=== PATIENT | male | born 1950 | race Caucasian/White ===

== ENCOUNTER 2023-09-12 18:55 | Emergency (ER) | payer MEDICARE, OTHER, SELFPAY ==
[2023-09-12 18:58] VITALS: BP 99/66
[2023-09-12 19:00] VITALS: BP 103/59
[2023-09-12 19:12] VITALS: BMI 24.7
[2023-09-12 19:20] LABS: % Basophils 0.9 % (0-2); % Eosinophils 4.4 % (0-6); % Immature Granulocytes 0.6 % (0-0.5); % Monocytes 11.6 % (1.7-9.3); % Neutrophils 56.5 % (42.2-75.2); Absolute Basophils 0.1 10^3/uL (0-0.2); Absolute Eosinophils 0.3 10^3/uL (0-0.7); Absolute Lymphocytes 1.8 10^3/uL (1.2-3.4); Absolute Monocytes 0.8 10^3/uL (0.1-0.6); Absolute Neutrophils 3.9 10^3/uL (1.4-6.5); Hematocrit 35.5 % (39.0-52.0); Hemoglobin 12.3 g/dL (13.0-18.0); Mean Corp Hgb Conc. 34.6 g/dL (33.0-37.0); Mean Corpuscular Hgb 29.5 pg (27.0-31.0); Mean Corpuscular Volume 85.1 fL (80.0-94.0); Mean Platelet Volume 9.6 fL (7.4-10.4); Nucleated Red Blood Cells % 0 % (-); Platelet Count 221 10^3/uL (130-400); Red Blood Cell Count 4.17 10^6/uL (4.70-6.10); Red Cell Dist. Width 13.7 % (11.5-14.5); White Blood Cell Count 6.8 10^3/uL (4.8-10.8)
[2023-09-12 19:30] LABS: APTT 28.5 Sec (23.4-35.0)
[2023-09-12 19:32] LABS: ALT (SGPT) 18 U/L (0-50); AST (SGOT) 20 U/L (17-59); Albumin 3.4 g/dl (3.5-5.0); Alkaline Phosphatase 82 U/L (38-126); Blood Urea Nitrogen 28 mg/dl (9-20); Calcium 9.5 mg/dl (8.4-10.2); Carbon Dioxide 26 mmol/L (22-30); Chloride 104 mmol/L (98-107); Estimated Creatinine Clearance 62 ml/min; Glucose 219 mg/dl (70-99); Potassium 4.3 mmol/L (3.5-5.1); Sodium 138 mmol/L (135-145); Total Bilirubin 0.6 mg/dl (0.2-1.3); Total Protein 6.1 g/dl (6.3-8.2); eGFR > 60.00
[2023-09-12 19:55] LABS: Troponin I < 0.012 ng/ml
[2023-09-12 20:00] VITALS: BP 101/64
[2023-09-12 21:02] VITALS: BP 119/60
--- NOTE | 2023-09-12 21:19 | ED.GENMED ---
History of Present Illness
<Ramon Hoffmann Jr., PA-C - Last Filed: 09/13/23 21:09>
General
Chief Complaint: Chest Pain
Source: patient
Exam Limitations: none
Time Seen by Provider: 09/12/23 19:01
Nursing documentation reviewed up to this point in time: agreed with
Travel History
Have you had any contact with someone who has COVID-19?: No
Do you have any symptoms of coronavirus? Fever > 100 degrees, chills, cough, shortness of breath, sore throat, loss of taste or smell, muscle aches, or headache?: No
History of Present Illness
History of Present Illness:
73-year-old male with past medical history of CAD hypertension and diabetes presenting to the emergency department today with concerns of chest discomfort from his nursing facility to the left chest described as intermittently sharp initially 9-10
was received aspirin and nitro prior to arrival with full resolution of symptoms. Denies any shortness of breath nausea vomiting diaphoresis.
Review of Systems
<Ramon Hoffmann Jr., PA-C - Last Filed: 09/13/23 21:09>
Review of Systems
Allergies reviewed?: Yes
All Other Systems: ROS reviewed and negative except as documented in HPI and ROS
Phy Exam
<Ramon Hoffmann Jr., PA-C - Last Filed: 09/13/23 21:09>
Physical Exam
Physical Exam:
GENERAL: Alert , in no apparent distress
EYE: pupils equal and reactive
NECK: Supple, no significant adenopathy.
ENT: o/p clr, mmm.
CARDIAC: Regular rate and rhythm .
LUNGS: Clear breath sounds bilaterally, no acute respiratory distress, no wheezes/rales/rhonchi
ABDOMEN: Soft, without focal tenderness, no r/g, no cvat
NEUROLOGICAL: Alert and oriented, no focal neuro deficits
SKIN: Warm and dry, skin intact.
MUSCULOSKELETAL: No edema, well perfused.
PSYCH: Normal and appropriate interaction.
Scores
<Ramon Hoffmann Jr., PA-C - Last Filed: 09/13/23 21:09>
Heart Score for Chest Pain Patients
Heart Score for Chest Pain Patients: 3
Heart Score Risk: 2.5% MACE over next 6 weeks
<Nikolay Stone DO - Last Filed: 09/12/23 22:52>
Heart Score for Chest Pain Patients
Heart Score for Chest Pain Patients: 3
Heart Score Risk: 2.5% MACE over next 6 weeks
<Juan Frausto PA-C - Last Filed: 09/12/23 22:46>
Heart Score for Chest Pain Patients
STEMI patient?: No
History: Slightly or Non-Suspicious
ECG: Normal
Age: >/= 65 years
Risk Factors: 1 or 2 Risk Factors
Troponin: </= Normal Limit
Heart Score for Chest Pain Patients: 3
Heart Score Risk: 2.5% MACE over next 6 weeks
Course
<Ramon Hoffmann Jr., PA-C - Last Filed: 09/13/23 21:09>
Orders/Labs/Results
Orders:
Orders
09/12/23 18:57
Electrocardiogram (*1) Urgent
Reason for Study: QTc Monitoring
09/12/23 18:58
EKG- Treatment ONCE
09/12/23 18:59
Complete Blood Count/With Diff Urgent
Comprehensive Metabolic Panel Urgent
PTT Urgent
Troponin I Urgent
09/12/23 19:26
Chest [CR Chest - 2 Views ] Urgent
Comment:
Reason For Exam: cp
09/12/23 21:18
EKG- Treatment ONCE
09/12/23 21:59
Troponin I Routine
09/12/23 22:00
EKG [Electrocardiogram (*1)] Routine
Reason for Study: Chest Pain
Abnormal Lab Results
09/12/23
18:59
RBC 4.17 L 10^6/uL
(4.70-6.10)
Hgb 12.3 L g/dL
(13.0-18.0)
Hct 35.5 L %
(39.0-52.0)
Absolute Monos (auto) 0.8 H 10^3/uL
(0.1-0.6)
Immature Gran % 0.6 H %
(0-0.5)
Monocytes % 11.6 H %
(1.7-9.3)
BUN 28 H mg/dl
(9-20)
Glucose 219 H mg/dl
(70-99)
Total Protein 6.1 L g/dl
(6.3-8.2)
Albumin 3.4 L g/dl
(3.5-5.0)
09/12/23 18:59
09/12/23 18:59
Vital Signs
Initial and Last Documented VS:
Initial Vital Signs
BP
99/66
09/12/23 18:58
Last Documented Vital Signs
Temp Pulse Resp BP Pulse Ox
98.6 F 84 21 113/71 97
09/12/23 19:00 09/12/23 23:15 09/12/23 23:15 09/12/23 22:00 09/12/23 23:15
Ilanalt;Nikolay Stone, - Last Filed: 09/12/23 22:52>
Orders/Labs/Results
Orders:
Orders
09/12/23 18:57
Electrocardiogram (*1) Urgent
Reason for Study: QTc Monitoring
09/12/23 18:58
EKG- Treatment ONCE
09/12/23 18:59
Complete Blood Count/With Diff Urgent
Comprehensive Metabolic Panel Urgent
PTT Urgent
Troponin I Urgent
09/12/23 19:26
Chest [CR Chest - 2 Views ] Urgent
Comment:
Reason For Exam: cp
09/12/23 21:18
EKG- Treatment ONCE
09/12/23 21:59
Troponin I Routine
09/12/23 22:00
EKG [Electrocardiogram (*1)] Routine
Reason for Study: Chest Pain
Abnormal Lab Results
09/12/23
18:59
RBC 4.17 L 10^6/uL
(4.70-6.10)
Hgb 12.3 L g/dL
(13.0-18.0)
Hct 35.5 L %
(39.0-52.0)
Absolute Monos (auto) 0.8 H 10^3/uL
(0.1-0.6)
Immature Gran % 0.6 H %
(0-0.5)
Monocytes % 11.6 H %
(1.7-9.3)
BUN 28 H mg/dl
(9-20)
Glucose 219 H mg/dl
(70-99)
Total Protein 6.1 L g/dl
(6.3-8.2)
Albumin 3.4 L g/dl
(3.5-5.0)
09/12/23 18:59
09/12/23 18:59
Vital Signs
Initial and Last Documented VS:
Initial Vital Signs
BP
99/66
09/12/23 18:58
Last Documented Vital Signs
Temp Pulse Resp BP Pulse Ox
98.6 F 84 21 113/71 97
09/12/23 19:00 09/12/23 23:15 09/12/23 23:15 09/12/23 22:00 09/12/23 23:15
<Juan Frausto PA-C - Last Filed: 09/12/23 22:46>
Orders/Labs/Results
Orders:
Orders
09/12/23 18:57
Electrocardiogram (*1) Urgent
Reason for Study: QTc Monitoring
09/12/23 18:58
EKG- Treatment ONCE
09/12/23 18:59
Complete Blood Count/With Diff Urgent
Comprehensive Metabolic Panel Urgent
PTT Urgent
Troponin I Urgent
09/12/23 19:26
Chest [CR Chest - 2 Views ] Urgent
Comment:
Reason For Exam: cp
09/12/23 21:18
EKG- Treatment ONCE
09/12/23 21:59
Troponin I Routine
09/12/23 22:00
EKG [Electrocardiogram (*1)] Routine
Reason for Study: Chest Pain
Abnormal Lab Results
09/12/23
18:59
RBC 4.17 L 10^6/uL
(4.70-6.10)
Hgb 12.3 L g/dL
(13.0-18.0)
Hct 35.5 L %
(39.0-52.0)
Absolute Monos (auto) 0.8 H 10^3/uL
(0.1-0.6)
Immature Gran % 0.6 H %
(0-0.5)
Monocytes % 11.6 H %
(1.7-9.3)
BUN 28 H mg/dl
(9-20)
Glucose 219 H mg/dl
(70-99)
Total Protein 6.1 L g/dl
(6.3-8.2)
Albumin 3.4 L g/dl
(3.5-5.0)
09/12/23 18:59
09/12/23 18:59
Vital Signs
Initial and Last Documented VS:
Initial Vital Signs
BP
99/66
09/12/23 18:58
Last Documented Vital Signs
Temp Pulse Resp BP Pulse Ox
98.6 F 84 21 113/71 97
09/12/23 19:00 09/12/23 23:15 09/12/23 23:15 09/12/23 22:00 09/12/23 23:15
<Ramon Hoffmann Jr., PA-C - Last Filed: 09/13/23 21:09>
MDM/Problems Addressed
MDM/Problems Addressed:
73-year-old male presenting to the emergency department today with concerns of chest discomfort prior to arrival. He received aspirin and nitro with full resolution of prior to arrival. No ongoing symptoms here. EKG showed sinus arrhythmia but no
evidence of A-fib as noted with the initial triage note. No obvious signs of ischemia but no old EKGs for comparison. No leg swelling no recent trauma surgery immobilization normal heart rate normal pulse ox. Initial troponin negative chest x-ray
normal. Plan for second troponin and EKG if no changes and negative troponin feel the patient is stable for outpatient follow-up with cardiology in a timely fashion. Second troponin negative making ACS very unlikely patient will follow-up closely
with cardiology.
<Juan Frausto PA-C - Last Filed: 09/12/23 22:46>
*Critical Care Note
Total Time (30-74mins, 75-104mins- exclusive of procedures): Not Applicable
<Juan Frausto PA-C - Last Filed: 09/12/23 22:46>
Patient Management
Escalation/DeEscalation of care consider admission/obs:
Patient received in signout pending repeat troponin. Second troponin remains negative and patient is chest pain-free. Information for outpatient cardiology was provided. Patient aware of return precautions but otherwise stable for discharge home.
ED Attending Note
<Ramon Hoffmann Jr., PA-C - Last Filed: 09/13/23 21:09>
-
Portions of this chart may have been created with voice recognition software.� Occasional wrong word or��sound alike� substitutions may have occurred due to the inherent limitations of voice recognition software.
<Nikolay Stone, - Last Filed: 09/12/23 22:52>
ED Attending Note
Patient seen and examined by attending physician: Yes
I performed the substantive portion of visit, reviewed & personally made and approve the management plan that is documented in note by myself or LAURIE.: Yes
ED Attending Note:
I have reviewed and agree with history and treatment plan by Luis Hoffmann. My exam reveals 73-year-old male with no acute distress, appears comfortable. Patient denies chest pain at this time. Serial troponins negative. Stable for discharge and
follow-up with cardiology
Discharge Plan
Departure
Patient Disposition: Home (Routine Discharge)
Date of Disposition: 09/12/23
Time of Disposition: 22:44
Patient with high blood pressure during this ER visit?: No
Condition: Good
Covid-19: Not Applicable
Discharge Problem:
Chest pain
Instructions: Chest Pain DCA Follow Up
Prescriptions:
No Action
atorvastatin 40 mg Tablet
40 mg PO QPM
acetaminophen 325 mg Tablet
650 mg PO Q6H PRN (Reason: mild pain/temp>100.4)
polyethylene glycol 3350 [Miralax] 17 gram Powder In Packet
17 g PO DAILY PRN (Reason: constipation)
isosorbide mononitrate 30 mg Tablet Extended Release 24 Hr
30 mg PO DAILY
glipizide 5 mg Tablet Extended Release 24hr
10 mg PO DAILY
clopidogrel 75 mg Tablet
75 mg PO DAILY
aspirin 81 mg Tablet,Delayed Release (Dr/Ec)
81 mg PO DAILY
magnesium hydroxide [Milk of Magnesia] 400 mg/5 mL Suspension
30 ml PO DAILY PRN (Reason: if no bm x 3 days)
bisacodyl [Dulcolax (bisacodyl)] 10 mg Suppository
10 mg WV DAILY PRN (Reason: if MOM is ineffective)
Fleet Enema 19-7 gram/118 mL Enema
118 ml WV DAILY PRN (Reason: if suppository is ineffective)
nitroglycerin [Nitrostat] 0.4 mg Tablet, Sublingual
0.4 mg SUBLINGUAL [id number] PRN (Reason: chest pain)
metoprolol succinate 25 mg Tablet Extended Release 24 Hr
12.5 mg PO DAILY
ergocalciferol (vitamin D2) 1,250 mcg (50,000 unit) Capsule
1,250 mcg PO FR
metformin 500 mg Tablet Extended Release 24 Hr
1,000 mg PO DAILY
aripiprazole [Abilify] 20 mg Tablet
20 mg PO DAILY
Levemir FlexPen 100 unit/mL (3 mL) Insulin Pen
5 unit SC HS
Januvia 100 mg Tablet
100 mg PO DAILY
aripiprazole lauroxil 441 mg/1.6 mL Suspension,Extended Rel Syring
441 mg IM QMONTH
Activity Restrictions/Additional Instructions:
You came to the emergency department today with concerns of chest discomfort. Here you had a reassuring evaluation. Please follow closely with cardiology in the next few days. Return to the emergency department for any worsening, new or
concerning symptoms.
Interventions
Interventions:
*Risk Screen - Suicide Last Done: 09/12/23 19:21
*General Assessment Last Done: 09/12/23 19:13
*Neglect/Abuse Screening Last Done: 09/12/23 19:21
ED- Fall Risk Assessment Last Done: 09/12/23 19:21
*ED COVID-19 Vaccine History Last Done: 02/06/24 23:33
*Nursing Disposition Last Done: 09/12/23 23:33
ED- Cardiac Assessment Last Done: 09/12/23 19:21
Discharge Date and Time
Discharge Date/Time: 09/12/23 23:34
[2023-09-12 22:00] VITALS: BP 113/71
[2023-09-12 22:28] LABS: Troponin I < 0.012 ng/ml
== END 2023-09-12 23:34 | disposition home or self-care (01) ==
LOC: EMR 18:55
PROVIDERS: Clinical Nurse Specialist Family Health; Physician Assistant; EMERGENCY PHYSICIAN Emergency Medicine; FAMILY PHYSICIAN Internal Medicine
DX: R07.89 Other chest pain (principal); I25.10 Atherosclerotic heart disease of native coronary artery without angina pectoris; I10 Essential (primary) hypertension; E11.9 Type 2 diabetes mellitus without complications; Z88.0 Allergy status to penicillin
CPT/HCPCS: 99284; 71046; 80053; 84484; 85025; 85730; 93005

== ENCOUNTER 2023-09-19 23:19 | Emergency (ER) | payer MEDICARE, SELFPAY ==
[2023-09-19 23:20] VITALS: BMI 24.0
[2023-09-19 23:23] VITALS: BP 107/61
--- NOTE | 2023-09-19 23:55 | ED.GENMED ---
History of Present Illness
General
Chief Complaint: Chest Pain
Time Seen by Provider: 09/19/23 23:25
Travel History
Have you had any contact with someone who has COVID-19?: No
Do you have any symptoms of coronavirus? Fever > 100 degrees, chills, cough, shortness of breath, sore throat, loss of taste or smell, muscle aches, or headache?: No
History of Present Illness
History of Present Illness:
HPI: The patient presents with chest pain. He tells me it started about half hour ago but he also tells me has been having chest pain intermittently for about 11 months. He says that while he was living in [place], approximately 6 weeks ago, he
had a heart attack and had a stent placed 'on the right side of my heart'. [facility] ended up placing him at [facility] here in [place]. He was also here 1 week ago for evaluation of chest pain. At that time he was discharged.
He also did screen positive for suicidal thoughts however in further evaluation, the patient states this has been going on for many years. He does request to talk to somebody.
EXAM:
GENERAL: Well appearing in no distress
HEENT: Moist oral mucosa
CARDIOVASCULAR: No murmurs, normal heart rate and rhythm, No chest wall tenderness
PULMONARY: No respiratory distress, breath sounds are clear and equal
ABDOMEN: Soft with no peritoneal signs, no tenderness
NEUROLOGIC: Excellent strength all extremities, no coordination deficits
PSYCHIATRIC: Appropriate mental status, normal insight and judgement
EXTREMITIES: Nontender, no edema, moves all extremities equally
SKIN: No rash, no lesions
ED COURSE:
12 AM: I initially evaluated patient
NUMBER AND COMPLEXITY OF PROBLEMS ADDRESSED AT THE ENCOUNTER
� Chronic conditions affecting care: CAD, GERD, diabetes
� Acute Exacerbation and/or Progression of Chronic Illness: This appears to be an acute on chronic problem
� Differential Diagnosis includes: Musculoskeletal chest pain, ACS less likely, anxiety, psych related
AMOUNT AND/OR COMPLEXITY OF DATA TO BE REVIEWED AND ANALYZED
� I performed an independent evaluation of and my interpretation is:
EKG: Sinus 73, left axis deviation, bifascicular block, no acute ST abnormality, no significant change from 09/12/2023
CT:
X-rays: I personally reviewed chest x-ray and see no acute abnormality
Laboratory Studies: CBC, chemistries unremarkable with exception of glucose of 206, initial troponin unremarkable, BNP also unremarkable
Other:
� Review of other/old records: I reviewed the notes from 1 week ago. We also attempted to get records from [facility]. The past medical history also includes suicidal ideation, prostate cancer, and 'major depressive
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 He was documented to be homeless at that time. The records indicate the patient had PCI November 2022. He was documented to lack capacity and has cognitive impairment.
� Clinical information was obtained by an independent historian: EMS note, notes from [facility]
� Prescriptions/Medications Considered but not given: Consider nitroglycerin however the patient did receive nitroglycerin prior to arrival and this has been a chronic problem and appears comfortable
� Further testing considered but not performed:
RISK OF COMPLICATIONS AND/OR MORBIDITY OR MORTALITY OF PATIENT MANAGEMENT
� Social determinants of health affecting care: Currently staying at [facility], but apparently was homeless while living in [facility]
� Discussion with other providers: Did discuss with crisis and crisis talk to the patient. The patient's depression/suicidal thoughts have been ongoing for many decades. No clear indication for admission to a psych hospital at
this time. He also had a negative troponin last week.
� Escalation of care including admission/observation vs risk of discharge considered: The patient was seen by crisis. The suicidal thoughts have been an ongoing issue for many many years. The chest pain is also not necessarily
a new thing. He did have more recent pain however therefore 2 troponins will be obtained. The first troponin was negative. I reassessed the patient at 1:40 AM. There has been no significant change in the patient's clinical condition. He is
well-appearing. He appears comfortable. Second troponin unchanged/normal. It appears that the most recent PCI was performed in November 2022.
Phy Exam
Physical Exam
Physical Exam:
See HPI
Scores
Heart Score for Chest Pain Patients
STEMI patient?: Not applicable
Course
Orders/Labs/Results
Orders:
Orders
09/19/23 23:21
Electrocardiogram (*1) Urgent
Reason for Study: Other
Other Reason for Exam: Respiratory Distress
Cardiac Monitoring- Treatment ONCE
EKG- Treatment ONCE
IV Insert/Care/Rem.- Treatment PRN
O2 Therapy [RESP] Urgent
Titrate/Wean O2 to maintain O2 sat greater than (%): 93
Special Instructions: TO MAINTAIN CONTINUOUS O2 SATS >/= 93%
Pulse Ox/cont/shift [RESP] Urgent
Quantity: 1
Special Instructions: continuous pulse ox
09/19/23 23:40
Complete Blood Count/With Diff Urgent
Comprehensive Metabolic Panel Urgent
NT-proBNP Urgent
Troponin I Urgent
09/19/23 23:55
Crisis Consult Urgent
Reason for Consult: depression
09/20/23 00:01
CR Chest - 2 Views Urgent
Reason For Exam: respiratory distress
09/20/23 01:37
Troponin I Urgent
Abnormal Lab Results
09/19/23
23:40
Abs Immat Gran (auto) 0.1 H 10^3/uL
(0-0.05)
Absolute Monos (auto) 0.7 H 10^3/uL
(0.1-0.6)
Immature Gran % 0.9 H %
(0-0.5)
Eosinophils % 6.6 H %
(0-6)
Glucose 206 H mg/dl
(70-99)
09/19/23 23:40
09/19/23 23:40
Vital Signs
Initial and Last Documented VS:
Initial Vital Signs
Temp Pulse Resp BP Pulse Ox
98.5 F 73 16 107/61 94
09/19/23 23:23 09/19/23 23:23 09/19/23 23:23 09/19/23 23:23 09/19/23 23:23
Last Documented Vital Signs
Temp Pulse Resp BP Pulse Ox
98.5 F 73 16 107/61 94
09/19/23 23:23 09/19/23 23:23 09/19/23 23:23 09/19/23 23:23 09/19/23 23:40
*Critical Care Note
Total Time (30-74mins, 75-104mins- exclusive of procedures): Not Applicable
ED Attending Note
-
Portions of this chart may have been created with voice recognition software.� Occasional wrong word or��sound alike� substitutions may have occurred due to the inherent limitations of voice recognition software.
Discharge Plan
Departure
Patient Disposition: Home (Routine Discharge)
Date of Disposition: 09/20/23
Time of Disposition: 02:14
Patient with high blood pressure during this ER visit?: Yes
Discharge Problem:
Chest pain
Instructions: Chest Pain DCA Follow Up
Prescriptions:
No Action
atorvastatin 40 mg Tablet
40 mg PO QPM
acetaminophen 325 mg Tablet
650 mg PO Q6H PRN (Reason: mild pain/temp>100.4)
polyethylene glycol 3350 [Miralax] 17 gram Powder In Packet
17 g PO DAILY PRN (Reason: constipation)
isosorbide mononitrate 30 mg Tablet Extended Release 24 Hr
30 mg PO DAILY
glipizide 5 mg Tablet Extended Release 24hr
10 mg PO DAILY
clopidogrel 75 mg Tablet
75 mg PO DAILY
aspirin 81 mg Tablet,Delayed Release (Dr/Ec)
81 mg PO DAILY
magnesium hydroxide [Milk of Magnesia] 400 mg/5 mL Suspension
30 ml PO DAILY PRN (Reason: if no bm x 3 days)
bisacodyl [Dulcolax (bisacodyl)] 10 mg Suppository
10 mg [place] DAILY PRN (Reason: if MOM is ineffective)
Fleet Enema 19-7 gram/118 mL Enema
118 ml [place] DAILY PRN (Reason: if suppository is ineffective)
nitroglycerin [Nitrostat] 0.4 mg Tablet, Sublingual
0.4 mg SUBLINGUAL [id number] PRN (Reason: chest pain)
metoprolol succinate 25 mg Tablet Extended Release 24 Hr
12.5 mg PO DAILY
ergocalciferol (vitamin D2) 1,250 mcg (50,000 unit) Capsule
1,250 mcg PO FR
metformin 500 mg Tablet Extended Release 24 Hr
1,000 mg PO DAILY
aripiprazole [Abilify] 20 mg Tablet
20 mg PO DAILY
Levemir FlexPen 100 unit/mL (3 mL) Insulin Pen
5 unit SC HS
Januvia 100 mg Tablet
100 mg PO DAILY
aripiprazole lauroxil 441 mg/1.6 mL Suspension,Extended Rel Syring
441 mg IM QMONTH
Referrals:
Lucio Daniels DO [Family Provider] -
Reyes Miller MD [Active] - Follow up in 2-3 days
Activity Restrictions/Additional Instructions:
EKG appears unchanged from prior. I see no clear acute abnormality on x-ray. 2 cardiac blood tests were obtained and both were normal. Return here if worse. I have given you the contact information for a local admissions rn.
Interventions
Interventions:
*Risk Screen - Suicide Last Done: 09/19/23 23:23
*General Assessment Last Done: 09/19/23 23:23
*Neglect/Abuse Screening Last Done: 09/19/23 23:23
ED- Fall Risk Assessment Last Done: 09/19/23 23:23
*ED COVID-19 Vaccine History Last Done: 09/19/23 23:23
ED- Cardiac Assessment Last Done: 09/19/23 23:40
[2023-09-20] VITALS: BP 98/64
[2023-09-20 00:07] LABS: % Basophils 0.6 % (0-2); % Eosinophils 6.6 % (0-6); % Immature Granulocytes 0.9 % (0-0.5); % Lymphocytes 24.1 % (20.5-51.1); % Monocytes 7.8 % (1.7-9.3); Absolute Basophils 0.1 10^3/uL (0-0.2); Absolute Eosinophils 0.6 10^3/uL (0-0.7); Absolute Immature Granulocytes 0.1 10^3/uL (0-0.05); Absolute Monocytes 0.7 10^3/uL (0.1-0.6); Absolute Neutrophils 5.1 10^3/uL (1.4-6.5); Hematocrit 40.3 % (39.0-52.0); Hemoglobin 14.3 g/dL (13.0-18.0); Mean Corp Hgb Conc. 35.5 g/dL (33.0-37.0); Mean Corpuscular Hgb 29.4 pg (27.0-31.0); Mean Corpuscular Volume 82.8 fL (80.0-94.0); Mean Platelet Volume 9.7 fL (7.4-10.4); Nucleated Red Blood Cells % 0 % (-); Platelet Count 235 10^3/uL (130-400); Red Blood Cell Count 4.87 10^6/uL (4.70-6.10); Red Cell Dist. Width 13.7 % (11.5-14.5); White Blood Cell Count 8.5 10^3/uL (4.8-10.8)
[2023-09-20 00:31] LABS: NT-proBNP 39.7 pg/ml; Troponin I < 0.012 ng/ml
[2023-09-20 00:32] LABS: ALT (SGPT) 19 U/L (0-50); AST (SGOT) 18 U/L (17-59); Alkaline Phosphatase 86 U/L (38-126); Blood Urea Nitrogen 20 mg/dl (9-20); Calcium 9.9 mg/dl (8.4-10.2); Carbon Dioxide 25 mmol/L (22-30); Chloride 105 mmol/L (98-107); Estimated Creatinine Clearance 63 ml/min; Glucose 206 mg/dl (70-99); Potassium 4.2 mmol/L (3.5-5.1); Sodium 141 mmol/L (135-145); Total Bilirubin 0.7 mg/dl (0.2-1.3); eGFR > 60.00
[2023-09-20 01:13] VITALS: BP 107/67
[2023-09-20 02:00] VITALS: BP 96/59
[2023-09-20 02:13] LABS: Troponin I < 0.012 ng/ml
== END 2023-09-20 03:08 | disposition home or self-care (01) ==
LOC: EMR 23:19
PROVIDERS: Student in an Organized Health Care Education/Training Program; EMERGENCY PHYSICIAN Emergency Medicine; FAMILY PHYSICIAN Internal Medicine
DX: R07.9 Chest pain, unspecified (principal); E11.9 Type 2 diabetes mellitus without complications; I10 Essential (primary) hypertension; K21.9 Gastro-esophageal reflux disease without esophagitis; I25.10 Atherosclerotic heart disease of native coronary artery without angina pectoris; F32.A Depression, unspecified; Z95.5 Presence of coronary angioplasty implant and graft
CPT/HCPCS: 99285; 71046; 80053; 83880; 84484; 85025; 93005

== ENCOUNTER 2023-09-29 00:07 | Emergency (ER) | payer MEDICARE, SELFPAY ==
[2023-09-29] VITALS (8 sets, daily range): BP systolic 101–128; BP diastolic 62–89; BMI 23.1
[2023-09-29 00:38] LABS: % Basophils 0.7 % (0-2); % Immature Granulocytes 0.4 % (0-0.5); % Lymphocytes 26.7 % (20.5-51.1); % Monocytes 8.2 % (1.7-9.3); Absolute Basophils 0.1 10^3/uL (0-0.2); Absolute Eosinophils 0.4 10^3/uL (0-0.7); Absolute Lymphocytes 2.2 10^3/uL (1.2-3.4); Absolute Monocytes 0.7 10^3/uL (0.1-0.6); Absolute Neutrophils 4.8 10^3/uL (1.4-6.5); Hematocrit 43.4 % (39.0-52.0); Hemoglobin 15.8 g/dL (13.0-18.0); Mean Corp Hgb Conc. 36.4 g/dL (33.0-37.0); Mean Corpuscular Hgb 30.3 pg (27.0-31.0); Mean Corpuscular Volume 83.3 fL (80.0-94.0); Mean Platelet Volume 9.6 fL (7.4-10.4); Nucleated Red Blood Cells % 0 % (-); Platelet Count 201 10^3/uL (130-400); Red Blood Cell Count 5.21 10^6/uL (4.70-6.10); Red Cell Dist. Width 13.5 % (11.5-14.5); White Blood Cell Count 8.2 10^3/uL (4.8-10.8)
--- NOTE | 2023-09-29 00:48 | ED.GENMED ---
History of Present Illness
<Nikolay Stone, DO - Last Filed: 09/29/23 02:57>
General
Chief Complaint: Chest Problem
Source: patient and ambulance crew
Exam Limitations: none
Time Seen by Provider: 09/29/23 00:45
Nursing documentation reviewed up to this point in time: agreed with
Travel History
Have you had any contact with someone who has COVID-19?: No
Do you have any symptoms of coronavirus? Fever > 100 degrees, chills, cough, shortness of breath, sore throat, loss of taste or smell, muscle aches, or headache?: No
History of Present Illness
History of Present Illness:
73-year-old male presents emergency department due to chest discomfort. Pain has been ongoing for 3 weeks. He states he gets it every other day. He was watching TV and experienced a sharp chest pain in the left side of his chest. He denies any
pain at this time. He also denies shortness of breath.
Past History
<Nikolay Stone, DO - Last Filed: 09/29/23 02:57>
Past History
ED Past Medical History: HTN, IDDM and Other (Dementia)
ED Past Surgical History: Urological (Prostate)
Social History
Tobacco: Former smoker
Alcohol: None
Drug: None
Living: [facility]
Review of Systems
<Nikolay Stone, DO - Last Filed: 09/29/23 02:57>
Review of Systems
Allergies reviewed?: Yes
All Other Systems: Not applicable
Constitutional: Reports no symptoms
EENT: Reports no symptoms
Respiratory: Reports no symptoms; Denies trouble breathing
Cardiac: Reports chest pain
ABD/GI: Reports no symptoms
: Reports no symptoms
Musculoskeletal: Reports no symptoms
Skin: Reports no symptoms
Neurological: Reports no symptoms
Endocrine: Reports no symptoms
Hematologic/Lymphatic: Reports no symptoms
Psychiatric: Reports no symptoms
Phy Exam
<Nikolay Stone, DO - Last Filed: 09/29/23 02:57>
Physical Exam
Physical Exam:
Physical Exam
General: no apparent distress, not acutely ill
Neck: supple. no meningeal signs. normal posterior pharynx
Heart: s1/s2 regular rate and rhythm, no murmur. equal radial
pulses.
HEENT: Pupils equal round reactive to light, EOMI
Lungs: no acute respiratory distress. clear bilaterally
Abdomen: normal bowel sounds. not tender. no CVAT
Neuro: alert and oriented. no focal neurological deficits cranial nerves II through XII intact
Skin: no rash
Psychiatric: well kept. interactive and cooperative
Extremities: no edema. no calf tenderness. negative homans. good distal pulses
Scores
<Nikolay Stone, DO - Last Filed: 09/29/23 02:57>
Heart Score for Chest Pain Patients
STEMI patient?: No
History: Slightly or Non-Suspicious
ECG: Normal
Age: >/= 65 years
Risk Factors: 1 or 2 Risk Factors
Troponin: </= Normal Limit
Heart Score for Chest Pain Patients: 3
Heart Score Risk: 2.5% MACE over next 6 weeks
<Cruz Randle, DO - Last Filed: 09/29/23 04:36>
Heart Score for Chest Pain Patients
Heart Score for Chest Pain Patients: 3
Heart Score Risk: 2.5% MACE over next 6 weeks
Course
<Nikolay Stone, DO - Last Filed: 09/29/23 02:57>
Orders/Labs/Results
Orders:
Orders
09/29/23 00:09
EKG [Electrocardiogram (*1)] Urgent
Reason for Study: Other
Other Reason for Exam: possible chest pressure
EKG- Treatment ONCE
09/29/23 00:31
Complete Blood Count/With Diff Urgent
Comprehensive Metabolic Panel Urgent
Troponin I Urgent
09/29/23 01:14
0.9% Sodium Chloride 500 ml [Nss] 1,000 ml IV ONCE
09/29/23 03:36
Troponin I Urgent
Abnormal Lab Results
09/29/23
00:31
Absolute Monos (auto) 0.7 H 10^3/uL
(0.1-0.6)
BUN 21 H mg/dl
(9-20)
Glucose 126 H mg/dl
(70-99)
09/29/23 00:31
09/29/23 00:31
Vital Signs
Initial and Last Documented VS:
Initial Vital Signs
Temp Pulse Resp BP Pulse Ox
98.1 F 63 13 105/73 99
09/29/23 00:12 09/29/23 00:12 09/29/23 00:12 09/29/23 00:12 09/29/23 00:12
Last Documented Vital Signs
Temp Pulse Resp BP Pulse Ox
98.1 F 76 17 112/68 97
09/29/23 00:12 09/29/23 04:00 09/29/23 04:00 09/29/23 04:00 09/29/23 04:00
<Cruz Randle, DO - Last Filed: 09/29/23 04:36>
Orders/Labs/Results
Orders:
Orders
09/29/23 00:09
EKG [Electrocardiogram (*1)] Urgent
Reason for Study: Other
Other Reason for Exam: possible chest pressure
EKG- Treatment ONCE
09/29/23 00:31
Complete Blood Count/With Diff Urgent
Comprehensive Metabolic Panel Urgent
Troponin I Urgent
09/29/23 01:14
0.9% Sodium Chloride 500 ml [Nss] 1,000 ml IV ONCE
09/29/23 03:36
Troponin I Urgent
Abnormal Lab Results
09/29/23
00:31
Absolute Monos (auto) 0.7 H 10^3/uL
(0.1-0.6)
BUN 21 H mg/dl
(9-20)
Glucose 126 H mg/dl
(70-99)
09/29/23 00:31
09/29/23 00:31
Vital Signs
Initial and Last Documented VS:
Initial Vital Signs
Temp Pulse Resp BP Pulse Ox
98.1 F 63 13 105/73 99
09/29/23 00:12 09/29/23 00:12 09/29/23 00:12 09/29/23 00:12 09/29/23 00:12
Last Documented Vital Signs
Temp Pulse Resp BP Pulse Ox
98.1 F 76 17 112/68 97
09/29/23 00:12 09/29/23 04:00 09/29/23 04:00 09/29/23 04:00 09/29/23 04:00
<Nikolay Stone, DO - Last Filed: 09/29/23 02:57>
MDM/Problems Addressed
Differential Diagnosis Includes:
ACS, musculoskeletal pain
MDM/Problems Addressed:
73-year-old male with chest pain, chronic, doubt ACS. Will repeat troponin, if negative will discharge.
Chronic conditions affecting care: HTN
Acute Exacerbation and/or Progression of Chronic Illness: HTN
<Nikolay Stone, DO - Last Filed: 09/29/23 02:57>
*Pulse Oximetry
Patient hypoxic: no
*EKG
Interpreted by ED Provider?: Yes
EKG Intrepretation Date: 09/29/23
EKG Intrepretation Time: 00:17
Interpretation: abnormal
Comparison EKG: changes noted
Heart Rate: 62
Rate: normal
Rhythm: sinus and PAC's
[place]: normal axis
Interval: normal interval
QRS Pattern: normal QRS
Ischemia: no ischemia
*Nozzle Worker Interpretation
Rate: normal
Interpretation: normal
Heart Rate: 64
Rhythm: sinus
*Critical Care Note
Total Time (30-74mins, 75-104mins- exclusive of procedures): Not Applicable
Data Reviewed
Review of Other/Old Records Reveals: Testing (Prior lab work, normal serial troponin)
Further Testing Considered But Not Given:
Chest x-ray not indicated
<Nikolay Stone DO - Last Filed: 09/29/23 02:57>
Patient Management
Social determinants of health affecting care: Living situation
Escalation/DeEscalation of care consider admission/obs:
Admit not indicated
ED Attending Note
<Nikolay Stone DO - Last Filed: 09/29/23 02:57>
-
Portions of this chart may have been created with voice recognition software.� Occasional wrong word or��sound alike� substitutions may have occurred due to the inherent limitations of voice recognition software.
Discharge Plan
Departure
Patient Disposition: Home (Routine Discharge)
Date of Disposition: 09/29/23
Time of Disposition: 04:34
Patient with high blood pressure during this ER visit?: No
Condition: Good
Discharge Problem:
Chest pain
Instructions: Chest Pain DCA Follow Up
Prescriptions:
No Action
atorvastatin 40 mg Tablet
40 mg PO QPM
acetaminophen 325 mg Tablet
650 mg PO Q6H PRN (Reason: mild pain/temp>100.4)
polyethylene glycol 3350 [Miralax] 17 gram Powder In Packet
17 g PO DAILY PRN (Reason: constipation)
isosorbide mononitrate 30 mg Tablet Extended Release 24 Hr
30 mg PO DAILY
glipizide 5 mg Tablet Extended Release 24hr
10 mg PO DAILY
clopidogrel 75 mg Tablet
75 mg PO DAILY
aspirin 81 mg Tablet,Delayed Release (Dr/Ec)
81 mg PO DAILY
magnesium hydroxide [Milk of Magnesia] 400 mg/5 mL Suspension
30 ml PO DAILY PRN (Reason: if no bm x 3 days)
bisacodyl [Dulcolax (bisacodyl)] 10 mg Suppository
10 mg IA DAILY PRN (Reason: if MOM is ineffective)
Fleet Enema 19-7 gram/118 mL Enema
118 ml IA DAILY PRN (Reason: if suppository is ineffective)
nitroglycerin [Nitrostat] 0.4 mg Tablet, Sublingual
0.4 mg SUBLINGUAL [id number] PRN (Reason: chest pain)
metoprolol succinate 25 mg Tablet Extended Release 24 Hr
12.5 mg PO DAILY
ergocalciferol (vitamin D2) 1,250 mcg (50,000 unit) Capsule
1,250 mcg PO FR
metformin 500 mg Tablet Extended Release 24 Hr
1,000 mg PO DAILY
aripiprazole [Abilify] 20 mg Tablet
20 mg PO DAILY
Levemir FlexPen 100 unit/mL (3 mL) Insulin Pen
5 unit SC HS
Januvia 100 mg Tablet
100 mg PO DAILY
aripiprazole lauroxil 441 mg/1.6 mL Suspension,Extended Rel Syring
441 mg IM QMONTH
Referrals:
Lucio Daniels DO [Family Provider] -
Interventions
Interventions:
*Risk Screen - Suicide Last Done: 09/29/23 00:12
*General Assessment Last Done: 09/29/23 00:12
*Neglect/Abuse Screening Last Done: 09/29/23 00:12
ED- Fall Risk Assessment Last Done: 09/29/23 00:25
*ED COVID-19 Vaccine History Last Done: 09/29/23 00:25
ED- Cardiac Assessment Last Done: 09/29/23 00:25
ED- Pulmonary Assessment Last Done: 09/29/23 00:25
[2023-09-29 00:58] LABS: ALT (SGPT) 20 U/L (0-50); AST (SGOT) 21 U/L (17-59); Albumin 4.7 g/dl (3.5-5.0); Alkaline Phosphatase 88 U/L (38-126); Blood Urea Nitrogen 21 mg/dl (9-20); Calcium 9.8 mg/dl (8.4-10.2); Carbon Dioxide 27 mmol/L (22-30); Chloride 107 mmol/L (98-107); Estimated Creatinine Clearance 63 ml/min; Glucose 126 mg/dl (70-99); Potassium 4.2 mmol/L (3.5-5.1); Sodium 138 mmol/L (135-145); Total Bilirubin 0.9 mg/dl (0.2-1.3); Total Protein 7.9 g/dl (6.3-8.2); eGFR > 60.00
[2023-09-29 01:00] LABS: Troponin I < 0.012 ng/ml
[2023-09-29] MEDS: NSS 1000 IV (01:15)
[2023-09-29 04:18] LABS: Troponin I < 0.012 ng/ml
== END 2023-09-29 07:13 | disposition home or self-care (01) ==
LOC: EMR 00:07
PROVIDERS: Student in an Organized Health Care Education/Training Program; EMERGENCY PHYSICIAN Emergency Medicine; FAMILY PHYSICIAN Internal Medicine
DX: R07.89 Other chest pain (principal); I10 Essential (primary) hypertension; E11.9 Type 2 diabetes mellitus without complications; F03.90 Unspecified dementia, unspecified severity, without behavioral disturbance, psychotic disturbance, mood disturbance, and anxiety; Z87.891 Personal history of nicotine dependence
CPT/HCPCS: 99283; 96360; 80053; 84484; 85025; 93005

== ENCOUNTER 2023-12-11 08:51 | Emergency (ER) | payer MEDICARE, OTHER, SELFPAY ==
[2023-12-11 08:52] VITALS: BP 114/79; BMI 22.0
--- NOTE | 2023-12-11 09:28 | ED.GENMED ---
History of Present Illness
General
Chief Complaint: Abdominal Pain
Source: patient
Exam Limitations: none
Time Seen by Provider: 12/11/23 09:21
Nursing documentation reviewed up to this point in time: agreed with
Travel History
Have you had any contact with someone who has COVID-19?: No
Do you have any symptoms of coronavirus? Fever > 100 degrees, chills, cough, shortness of breath, sore throat, loss of taste or smell, muscle aches, or headache?: No
History of Present Illness
History of Present Illness:
[facility] from [facility] secondary to lower abdominal pain. Abdominal pain described as sharp, nonradiating, without nausea, vomiting, or diarrhea. Denies trauma. Denies difficulty with urination. In addition, patient reports
continual thoughts of suicide by jumping in front of a bus. He has had daily thoughts like this since the age of 37. Patient has never had suicidal attempts however. Denies fever or chills. Denies recent change in medications or diet. Denies
change in bowel habits.
Past History
Past History
ED Past Medical History: HTN, IDDM and Other (Dementia)
ED Past Surgical History: Urological (Prostate)
Social History
Tobacco: Former smoker
Alcohol: None
Drug: None
Living: [facility]
Review of Systems
Review of Systems
Allergies reviewed?: Yes
All Other Systems: ROS reviewed and negative except as documented in HPI and ROS
Constitutional: Reports no symptoms; Denies fever
EENT: Reports no symptoms
Respiratory: Reports no symptoms
Cardiac: Reports no symptoms
ABD/GI: Reports abdominal pain; Denies nausea, vomiting or diarrhea
: Reports no symptoms
Musculoskeletal: Reports no symptoms
Skin: Reports no symptoms
Neurological: Reports no symptoms
Psychiatric: Reports suicidal
Phy Exam
Physical Exam
Physical Exam:
Physical Exam
General: no apparent distress, not acutely ill. afebrile
Head: nc/at. eomi
Neck: supple. no meningeal signs.
Heart: s1/s2 regular rate and rhythm, no murmur. equal radial pulses.
Lungs: no acute respiratory distress. clear bilaterally
Abdomen: normal bowel sounds. not tender.
Neuro: alert and oriented. no focal neurological deficits
Skin: no rash
Psychiatric: well kept. interactive and cooperative
Extremities: no edema. no calf tenderness.
Course
Orders/Labs/Results
Orders:
Orders
12/11/23 09:05
Crisis Consult Urgent
Reason for Consult: suicidal ideation, chronic, with plan
1:1 Observation - Suicide/ Violent Behavior As Directed
12/11/23 09:20
CMP [Comprehensive Metabolic Panel] Urgent
Complete Blood Count/With Diff Urgent
Lipase Urgent
Comment: ADD ON
Magnesium Urgent
Comment: ADD ON
UA Reflex to Culture [Urinalysis Reflex To Culture] Urgent
Date Specimen was Collected: 12/11/23
Time Specimen was Collected: 09:19
Urine Microscopic Reflex Cult Urgent
12/11/23 09:27
CR Obstruct Series W/pa Chest Urgent
Comment:
Reason For Exam: abdominal pain
12/11/23 09:45
Add On- LAB Urgent
Comments:: in lab
Tests Added?: lipase, magnesium
12/11/23 10:10
0.9% Sodium Chloride 1000 ml [Nss] 1,000 ml IV BOLUS
Abnormal Lab Results
12/11/23
09:20
RBC 4.41 L 10^6/uL
(4.70-6.10)
Hct 38.5 L %
(39.0-52.0)
Absolute Monos (auto) 0.7 H 10^3/uL
(0.1-0.6)
Lymphocytes % 17.2 L %
(20.5-51.1)
Chloride 114 H mmol/L
(98-107)
Carbon Dioxide 18 L mmol/L
(22-30)
BUN 26 H mg/dl
(9-20)
Glucose 133 H mg/dl
(70-99)
Urine Ketones Trace A
(Negative)
Leukocyte Esterase Rfl Trace A
(Negative)
12/11/23 09:20
12/11/23 09:20
Vital Signs
Initial and Last Documented VS:
Initial Vital Signs
Temp Pulse Resp BP Pulse Ox
98.3 F 71 15 114/79 97
12/11/23 08:52 12/11/23 08:52 12/11/23 08:52 12/11/23 08:52 12/11/23 08:52
Last Documented Vital Signs
Temp Pulse Resp BP Pulse Ox
98.3 F 72 11 104/72 100
12/11/23 08:52 12/11/23 14:45 12/11/23 14:45 12/11/23 14:00 12/11/23 14:45
MDM/Problems Addressed
MDM/Problems Addressed:
Pt evaluated in ED [facility] - does not feel that patient need an acute inpatient treatment, as he has similar ongoing symptoms and currently has no plan to commit suicide and he resides in [facility].
Pt with an unremarkable workup, including blood work/x-ray. Repeat abd exam: soft and nontender.
Pt will be discharged back to [place] for continual care.
*Critical Care Note
Total Time (30-74mins, 75-104mins- exclusive of procedures): Not Applicable
ED Attending Note
-
Portions of this chart may have been created with voice recognition software.� Occasional wrong word or��sound alike� substitutions may have occurred due to the inherent limitations of voice recognition software.
Discharge Plan
Departure
Patient Disposition: Home (Routine Discharge)
Date of Disposition: 12/11/23
Time of Disposition: 13:04
Patient with high blood pressure during this ER visit?: Yes
Condition: Good
Discharge Problem:
Abdominal pain, Suicide ideation
Instructions: Abdominal Pain
Prescriptions:
No Action
atorvastatin 40 mg Tablet
40 mg PO QPM
acetaminophen 325 mg Tablet
650 mg PO Q6HPRN PRN (Reason: mild pain/temp>100.4)
polyethylene glycol 3350 [Miralax] 17 gram Powder In Packet
17 g PO DAILYPRN PRN (Reason: constipation)
isosorbide mononitrate 30 mg Tablet Extended Release 24 Hr
30 mg PO DAILY
glipizide 5 mg Tablet Extended Release 24hr
10 mg PO DAILY
clopidogrel 75 mg Tablet
75 mg PO DAILY
aspirin 81 mg Tablet,Delayed Release (Dr/Ec)
81 mg PO DAILY
magnesium hydroxide [Milk of Magnesia] 400 mg/5 mL Suspension
30 ml PO [id number] PRN (Reason: if no bm x 3 days)
bisacodyl [Dulcolax (bisacodyl)] 10 mg Suppository
10 mg AR DAILYPRN PRN (Reason: if MOM is ineffective)
Fleet Enema 19-7 gram/118 mL Enema
118 ml AR DAILYPRN PRN (Reason: if suppository is ineffective)
nitroglycerin [Nitrostat] 0.4 mg Tablet, Sublingual
0.4 mg SUBLINGUAL [id number] PRN (Reason: chest pain)
metoprolol succinate 25 mg Tablet Extended Release 24 Hr
12.5 mg PO DAILY
ergocalciferol (vitamin D2) 1,250 mcg (50,000 unit) Capsule
1,250 mcg PO FR
metformin 500 mg Tablet Extended Release 24 Hr
1,000 mg PO BID
aripiprazole [Abilify] 20 mg Tablet
20 mg PO DAILY
Januvia 100 mg Tablet
100 mg PO DAILY
aripiprazole lauroxil 441 mg/1.6 mL Suspension,Extended Rel Syring
441 mg IM QMONTH
insulin glargine [Lantus U-100 Insulin] 100 unit/mL Solution
5 unit SC HS
famotidine [Pepcid] 20 mg Tablet
20 mg PO Q6HPRN PRN (Reason: gerd)
Referrals:
Lucio Daniels, [Family Provider] -
Activity Restrictions/Additional Instructions:
As discussed, [facility] are being [facility] and treatment.
Interventions
Interventions:
*Risk Screen - Suicide Last Done: 12/11/23 09:24
*General Assessment Last Done: 12/11/23 08:52
*Neglect/Abuse Screening Last Done: 12/11/23 08:52
ED- Fall Risk Assessment Last Done: 12/11/23 09:08
*ED COVID-19 Vaccine History Last Done: 12/11/23 08:52
*Nursing Disposition Last Done: 12/11/23 15:10
HN-[id number]-[id number] Assessment Last Done: 12/11/23 09:08
Discharge Date and Time
Discharge Date/Time: 12/11/23 15:12
Print Language: ARMENIAN
[2023-12-11 09:31] LABS: % Basophils 0.4 % (0-2); % Immature Granulocytes 0.2 % (0-0.5); % Lymphocytes 17.2 % (20.5-51.1); % Monocytes 8.6 % (1.7-9.3); % Neutrophils 68.6 % (42.2-75.2); Absolute Eosinophils 0.4 10^3/uL (0-0.7); Absolute Lymphocytes 1.4 10^3/uL (1.2-3.4); Absolute Monocytes 0.7 10^3/uL (0.1-0.6); Absolute Neutrophils 5.5 10^3/uL (1.4-6.5); Hematocrit 38.5 % (39.0-52.0); Hemoglobin 13.4 g/dL (13.0-18.0); Mean Corp Hgb Conc. 34.8 g/dL (33.0-37.0); Mean Corpuscular Hgb 30.4 pg (27.0-31.0); Mean Corpuscular Volume 87.3 fL (80.0-94.0); Mean Platelet Volume 9.8 fL (7.4-10.4); Nucleated Red Blood Cells % 0 % (-); Platelet Count 217 10^3/uL (130-400); Red Blood Cell Count 4.41 10^6/uL (4.70-6.10); Red Cell Dist. Width 12.8 % (11.5-14.5); Urine Albumin Negative (Neg - Trace); Urine Bilirubin Negative (Negative); Urine Character Clear (Clear); Urine Color Yellow; Urine Glucose Negative (Negative); Urine Ketone Trace (Negative); Urine Leukocyte Trace (Negative); Urine Nitrite Negative (Negative); Urine Occult Blood Negative (Negative); Urine Specific Gravity 1.025 (<1.030); Urine Urobilinogen Negative (Neg - 1+)
[2023-12-11 09:43] LABS: ALT (SGPT) 20 U/L (0-50); AST (SGOT) 20 U/L (17-59); Albumin 4.4 g/dl (3.5-5.0); Alkaline Phosphatase 81 U/L (38-126); Blood Urea Nitrogen 26 mg/dl (9-20); Calcium 10.2 mg/dl (8.4-10.2); Carbon Dioxide 18 mmol/L (22-30); Chloride 114 mmol/L (98-107); Estimated Creatinine Clearance 65 ml/min; Glucose 133 mg/dl (70-99); Potassium 4.1 mmol/L (3.5-5.1); Sodium 139 mmol/L (135-145); Total Bilirubin 0.6 mg/dl (0.2-1.3); Total Protein 7.3 g/dl (6.3-8.2); eGFR > 60.00
[2023-12-11 10:00] VITALS: BP 101/72
[2023-12-11 10:04] LABS: Urine Squamous Cell 0-2 /LPF (Few)
[2023-12-11 10:05] LABS: Urine Amorphous Seen; Urine Red Blood Cell 0-2 /HPF (0-2); Urine White Cell 0-2 /HPF (0-5)
[2023-12-11 10:07] LABS: Lipase 65 U/L (23-300); Magnesium 1.9 mg/dl (1.6-2.3); Urine Hyaline Cast 0-2 /LPF (0-2)
[2023-12-11 10:09] LABS: Urine Calcium Oxalate Crystals Present
[2023-12-11] MEDS: NSS 1000 IV (10:26)
[2023-12-11 11:00] VITALS: BP 110/64
[2023-12-11 13:00] VITALS: BP 110/76
[2023-12-11 14:00] VITALS: BP 104/72
== END 2023-12-11 15:12 | disposition home or self-care (01) ==
LOC: EMR 08:51
PROVIDERS: Emergency Medicine; EMERGENCY PHYSICIAN Emergency Medicine; FAMILY PHYSICIAN Internal Medicine
DX: R10.30 Lower abdominal pain, unspecified (principal); R45.851 Suicidal ideations; I10 Essential (primary) hypertension; Z87.891 Personal history of nicotine dependence
CPT/HCPCS: 99285; 96360; 74022; 80053; 81003; 81015; 83690; 83735; 85025

== ENCOUNTER 2024-01-30 00:39 | Emergency (ER) | payer OTHER, SELFPAY ==
[2024-01-30 00:40] VITALS: BP 108/60
[2024-01-30 03:38] LABS: % Basophils 0.5 % (0-2); % Immature Granulocytes 0.5 % (0-0.5); % Lymphocytes 27.2 % (20.5-51.1); % Monocytes 8.4 % (1.7-9.3); % Neutrophils 59.4 % (42.2-75.2); Absolute Eosinophils 0.3 10^3/uL (0-0.7); Absolute Monocytes 0.6 10^3/uL (0.1-0.6); Absolute Neutrophils 4.3 10^3/uL (1.4-6.5); Hematocrit 34.4 % (39.0-52.0); Hemoglobin 12.5 g/dL (13.0-18.0); Mean Corp Hgb Conc. 36.3 g/dL (33.0-37.0); Mean Corpuscular Hgb 30.3 pg (27.0-31.0); Mean Corpuscular Volume 83.5 fL (80.0-94.0); Mean Platelet Volume 9.5 fL (7.4-10.4); Nucleated Red Blood Cells % 0 % (-); Platelet Count 204 10^3/uL (130-400); Red Blood Cell Count 4.12 10^6/uL (4.70-6.10); Red Cell Dist. Width 12.6 % (11.5-14.5); White Blood Cell Count 7.3 10^3/uL (4.8-10.8)
[2024-01-30 03:58] LABS: ALT (SGPT) 20 U/L (0-50); AST (SGOT) 18 U/L (17-59); Albumin 4.1 g/dl (3.5-5.0); Alkaline Phosphatase 89 U/L (38-126); Blood Urea Nitrogen 14 mg/dl (9-20); Calcium 9.6 mg/dl (8.4-10.2); Carbon Dioxide 25 mmol/L (22-30); Chloride 110 mmol/L (98-107); Glucose 150 mg/dl (70-99); Potassium 3.8 mmol/L (3.5-5.1); Sodium 142 mmol/L (135-145); Total Bilirubin 0.6 mg/dl (0.2-1.3); Total Protein 6.8 g/dl (6.3-8.2); eGFR > 60.00
[2024-01-30 04:00] VITALS: BMI 23.6
[2024-01-30 04:02] LABS: Troponin I < 0.012 ng/ml
[2024-01-30 04:16] VITALS: BP 131/71
[2024-01-30 06:00] VITALS: BP 111/51
[2024-01-30 06:43] LABS: Troponin I < 0.012 ng/ml
[2024-01-30 07:00] VITALS: BP 110/96
--- NOTE | 2024-01-30 07:29 | ED.GENMED ---
History of Present Illness
General
Chief Complaint: Chest Pain
Source: patient, ambulance crew, custodial and previous hospital records
Exam Limitations: none
Time Seen by Provider: 01/30/24 05:00
Nursing documentation reviewed up to this point in time: agreed with
History of Present Illness
History of Present Illness:
This is a 73-year-old gentleman, resident of a local custodial who presents with complaints of left-sided chest pain that woke him from sleep tonight. He does admit to similar near daily chest pain and reports having suffered an VA approximately
6 months ago and underwent PTCA with stent at [facility].
He does follow with cardiology for chronic ongoing chest pain without specific definitive diagnosis and was evaluated in this ED September of this year with similar chest pain, unremarkable ED workup at that time including negative serial troponins.
No associated symptoms, he denies shortness of breath nor cough nor diaphoresis, no nausea nor palpitations. No neck nor back pain.
He was given sublingual nitroglycerin at the custodial and additional dose of sublingual nitroglycerin by squad along with 325 mg chewable aspirin. He initially reports no relief of chest pain despite nitroglycerin but since arrival to the ED he
is now chest pain-free and comfortable.
He is currently hungry and asking for something to eat.
Past History
Past History
ED Past Medical History: CAD, Cancer (Prostate cancer), HTN, IDDM, Psychiatric and Other (Dementia)
ED Past Surgical History: Urological (Prostate)
Social History
Tobacco: Former smoker
Alcohol: None
Drug: None
Living: custodial
Employment: Retired
Family History
Family History: Other (Noncontributory)
Phy Exam
Physical Exam
Physical Exam:
GENERAL: 73-year-old gentleman appears his stated age, awake and alert, pleasant, appears in no acute distress. Easily communicative.
EYE: anicteric
NECK: Supple, nontender, no meningismus, no significant adenopathy.
ENT: oral mucosa is moist. No rhinorrhea.
CARDIAC: Regular rate and rhythm. 2/6 holosystolic murmur left sternal border. No palpable chest wall tenderness.
LUNGS: Clear breath sounds bilaterally, no acute respiratory distress, no wheezes/rales/rhonchi
ABDOMEN: Soft, nondistended, without focal tenderness, no r/g, no cvat. normoactive BS.
NEUROLOGICAL: Alert and oriented x3, no focal neuro deficits. Gait is caceres and steady.
SKIN: Warm and dry, normal color, skin intact. No rash.
MUSCULOSKELETAL: No C/C/E. peripheral pulses are full and equal b/l. No palpable tenderness.
PSYCH: Normal and appropriate interaction.
Scores
Heart Score for Chest Pain Patients
STEMI patient?: No
History: Slightly or Non-Suspicious
ECG: Normal
Age: >/= 65 years
Risk Factors: >/= 3 Risk Factors or History of CAD
Troponin: </= Normal Limit
Heart Score for Chest Pain Patients: 4
Heart Score Risk: 20.3% MACE over next 6 weeks
Course
Orders/Labs/Results
Orders:
Orders
01/30/24 00:45
Electrocardiogram (*1) Urgent
Reason for Study: Chest Pain
EKG- Treatment ONCE
01/30/24 03:22
CMP [Comprehensive Metabolic Panel] Urgent
Complete Blood Count/With Diff Urgent
Troponin I Urgent
01/30/24 06:04
Troponin I Urgent
01/30/24 07:09
Crisis Consult Urgent
Reason for Consult: hx depression, wants to talk with crisis.
Abnormal Lab Results
01/30/24
03:22
RBC 4.12 L 10^6/uL
(4.70-6.10)
Hgb 12.5 L g/dL
(13.0-18.0)
Hct 34.4 L %
(39.0-52.0)
Chloride 110 H mmol/L
(98-107)
Glucose 150 H mg/dl
(70-99)
01/30/24 03:22
01/30/24 03:22
Vital Signs
Initial and Last Documented VS:
Initial Vital Signs
Temp Pulse Resp BP Pulse Ox
97.4 F 55 24 108/60 100
01/30/24 00:40 01/30/24 00:40 01/30/24 00:40 01/30/24 00:40 01/30/24 00:40
Last Documented Vital Signs
Temp Pulse Resp BP Pulse Ox
97.4 F 61 15 110/96 99
01/30/24 00:40 01/30/24 07:30 01/30/24 07:30 01/30/24 07:00 01/30/24 07:15
MDM/Problems Addressed
Differential Diagnosis Includes:
Concern for ACS, chest wall pain, GERD.
Currently pain-free and comfortable.
Admits to chronic, near daily similar episodes of chest pain.
EKG is unremarkable and unchanged from previous save for heart rate has decreased, now bradycardic but he remains hemodynamically stable.
Will check labs, troponin and continue to monitor.
Chronic conditions affecting care: DM, HTN, CAD and Psychiatric illness
*Pulse Oximetry
Patient hypoxic: no
*EKG
Interpreted by ED Provider?: Yes
Comparison EKG: no changes (Unchanged from previous taper heart rate has decreased from 60 to now 47)
Rate: bradycardiac
Rhythm: sinus
[place]: left axis deviation
QRS Pattern: right bundle branch block
Ischemia: no ischemia
*Roll Cutter Interpretation
Rate: bradycardiac
Interpretation: normal
Rhythm: sinus
*Critical Care Note
Total Time (30-74mins, 75-104mins- exclusive of procedures): Not Applicable
Update Note
Update Note:
Patient remains chest pain-free and comfortable. Continues to ask for something to eat.
Labs are unremarkable including negative troponin x 2.
He is now requesting to speak with crisis. He does admit to chronic depression, suicidal thoughts and similar complaints during ED visit in December when he presented with abdominal pain. Evaluated by crisis at that time who did not feel patient
required inpatient psychiatric hospitalization. Although reports fleeting thoughts of suicide, and ongoing chronic issue he has never attempted suicide.
Will have crisis counselor meet at bedside and plan to discharge back to custodial for continued outpatient care and continued follow-up with his primary care pediatrician from [facility] as well as his primary care physician.
ED Attending Note
-
Portions of this chart may have been created with voice recognition software.� Occasional wrong word or��sound alike� substitutions may have occurred due to the inherent limitations of voice recognition software.
Discharge Plan
Departure
Patient Disposition: Correction/SNF
Date of Disposition: 01/30/24
Time of Disposition: 07:29
Patient with high blood pressure during this ER visit?: No
Condition: Good
Discharge Problem:
Chronic chest pain, Chest pain, non-cardiac
Instructions: Chest Pain NON-DH[facility] Manager Background Follow Up
Prescriptions:
No Action
atorvastatin 40 mg Tablet
40 mg PO QPM
acetaminophen 325 mg Tablet
650 mg PO Q6HPRN PRN (Reason: mild pain/temp>100.4)
isosorbide mononitrate 30 mg Tablet Extended Release 24 Hr
30 mg PO DAILY
glipizide 5 mg Tablet Extended Release 24hr
10 mg PO DAILY
clopidogrel 75 mg Tablet
75 mg PO DAILY
aspirin 81 mg Tablet,Delayed Release (Dr/Ec)
81 mg PO DAILY
nitroglycerin [Nitrostat] 0.4 mg Tablet, Sublingual
0.4 mg SUBLINGUAL [id number] PRN (Reason: chest pain)
metoprolol succinate 25 mg Tablet Extended Release 24 Hr
12.5 mg PO DAILY
metformin 500 mg Tablet Extended Release 24 Hr
1,000 mg PO BID
aripiprazole [Abilify] 20 mg Tablet
20 mg PO DAILY
Januvia 100 mg Tablet
100 mg PO DAILY
aripiprazole lauroxil 441 mg/1.6 mL Suspension,Extended Rel Syring
441 mg IM QMONTH
insulin glargine [Lantus U-100 Insulin] 100 unit/mL Solution
5 unit SC HS
famotidine [Pepcid] 20 mg Tablet
20 mg PO Q6HPRN PRN (Reason: gerd)
cholecalciferol (vitamin D3) [Vitamin D3] 25 mcg (1,000 unit) Capsule
25 mcg PO DAILY
finasteride 5 mg Tablet
5 mg PO DAILY
venlafaxine [Effexor XR] 75 mg Capsule,Extended Release 24hr
75 mg PO DAILY
venlafaxine [Effexor XR] 150 mg Capsule,Extended Release 24hr
150 mg PO QPM
Referrals:
Lucio Daniels, [Family Provider] - Call in 1-3 days for appt
Interventions
Interventions:
*Risk Screen - Suicide Last Done: 01/30/24 03:30
*General Assessment Last Done: 01/30/24 03:30
ED- Fall Risk Assessment Last Done: 01/30/24 04:00
*ED COVID-19 Vaccine History Last Done: 01/30/24 03:30
ED- Cardiac Assessment Last Done: 01/30/24 07:30
Discharge Date and Time
Print Language: FRENCH
--- NOTE | 2024-01-30 08:05 | EDRN ---
D/C report to Dominic @ [facility]. Arranging transportation.
== END 2024-01-30 10:52 ==
LOC: EMR 00:39
PROVIDERS: Emergency Medicine; EMERGENCY PHYSICIAN Emergency Medicine; FAMILY PHYSICIAN Internal Medicine
DX: G89.29 Other chronic pain (principal); R07.89 Other chest pain; Z87.891 Personal history of nicotine dependence; E11.9 Type 2 diabetes mellitus without complications; I10 Essential (primary) hypertension; I25.10 Atherosclerotic heart disease of native coronary artery without angina pectoris; F32.A Depression, unspecified; R45.851 Suicidal ideations
CPT/HCPCS: 99284; 80053; 84484; 85025; 93005

== ENCOUNTER → 2024-02-27 07:24 | Emergency (ER) | payer OTHER, SELFPAY ==
[2024-02-27 07:25] VITALS: BMI 23.2
--- NOTE | 2024-02-27 07:30 | ED.GENMED ---
History of Present Illness
General
Chief Complaint: Chest Pain
Source: patient, ambulance crew and shelter
Exam Limitations: none
Time Seen by Provider: 02/27/24 07:28
Nursing documentation reviewed up to this point in time: agreed with
History of Present Illness
History of Present Illness:
73-year-old male with past medical history of CAD status post stenting 6 months ago at [facility], hypertension hyperlipidemia, diabetes, depression previous prostate cancer in remission presenting to the emergency department today with concerns of
left-sided achy chest discomfort this morning while watching TV. EMS was called to his nursing facility and he was given aspirin and nitro with complete resolution of symptoms. He did not have any associated nausea vomiting diaphoresis or
shortness of breath. Denies any recent trauma surgery immobilization, leg swelling, history of blood clots.
Past History
Past History
ED Past Medical History: CAD, Cancer (Prostate cancer), HTN, IDDM, Psychiatric and Other (Dementia)
ED Past Surgical History: Urological (Prostate)
Social History
Tobacco: Former smoker
Alcohol: None
Drug: None
Living: shelter
Employment: Retired
Family History
Family History: Other (Noncontributory)
Review of Systems
Review of Systems
Allergies reviewed?: Yes
All Other Systems: ROS reviewed and negative except as documented in HPI and ROS
Phy Exam
Physical Exam
Physical Exam:
GENERAL: Alert , in no apparent distress
EYE: pupils equal and reactive
NECK: Supple, no significant adenopathy.
ENT: o/p clr, mmm.
CARDIAC: Regular rate and rhythm .
LUNGS: Clear breath sounds bilaterally, no acute respiratory distress, no wheezes/rales/rhonchi
ABDOMEN: Soft, without focal tenderness, no r/g, no cvat
NEUROLOGICAL: Alert and oriented, no focal neuro deficits
SKIN: Warm and dry, skin intact.
MUSCULOSKELETAL: No edema, well perfused.
PSYCH: Normal and appropriate interaction.
Scores
Heart Score for Chest Pain Patients
STEMI patient?: No
History: Slightly or Non-Suspicious
ECG: Nonspecific Repolarization
Age: >/= 65 years
Risk Factors: >/= 3 Risk Factors or History of CAD
Troponin: </= Normal Limit
Heart Score for Chest Pain Patients: 5
Heart Score Risk: 20.3% MACE over next 6 weeks
Course
Orders/Labs/Results
Orders:
Orders
02/27/24
Electrocardiogram (*1) Stat
Comment: ALREADY DONE
02/27/24 07:29
Cardiac Monitoring- Treatment ONCE
CR Chest - 2 Views Urgent
Comment:
Reason For Exam: cp left side
02/27/24 07:31
Complete Blood Count/With Diff Urgent
Comprehensive Metabolic Panel Urgent
Magnesium Urgent
NT-proBNP Urgent
Troponin I Urgent
02/27/24 08:54
Propofol [Diprivan] 20 ml .ROUTE .STK-MED
02/27/24 10:29
EKG [Electrocardiogram (*1)] Urgent
Reason for Study: Chest Pain
EKG- Treatment ONCE
02/27/24 10:38
Troponin I Urgent
Abnormal Lab Results
02/27/2424
07:30 07:31
RBC 4.60 L 10^6/uL
(4.70-6.10)
Hct 37.7 L %
(39.0-52.0)
Absolute Monos (auto) 0.7 H 10^3/uL
(0.1-0.6)
Chloride 111 H mmol/L
(98-107)
Glucose 120 H mg/dl
(70-99)
POC Glucose 125 H mg/dl
(70-99)
02/27/24 07:31
02/27/24 07:31
Vital Signs
Initial and Last Documented VS:
Initial Vital Signs
Temp Pulse Resp BP Pulse Ox
98 F 64 18 105/64 98
02/27/24 07:32 02/27/24 07:32 02/27/24 07:32 02/27/24 07:32 02/27/24 07:32
Last Documented Vital Signs
Temp Pulse Resp BP Pulse Ox
98 F 58 18 116/69 98
02/27/24 07:32 02/27/24 11:17 02/27/24 11:17 02/27/24 10:42 02/27/24 11:17
MDM/Problems Addressed
MDM/Problems Addressed:
73-year-old male presenting to the emergency department today with concerns of chest pain starting just prior to arrival left-sided aching nonradiating no associated symptoms. Patient was given aspirin and nitro en route via EMS with complete
resolution of symptoms. Here patient well-appearing no acute distress. Asymptomatic throughout ER stay negative troponin x 2 normal EKG x 2. Patient appear stable for discharge can follow-up as an outpatient. Return precautions given.
*Critical Care Note
Total Time (30-74mins, 75-104mins- exclusive of procedures): Not Applicable
ED Attending Note
-
Portions of this chart may have been created with voice recognition software.� Occasional wrong word or��sound alike� substitutions may have occurred due to the inherent limitations of voice recognition software.
Discharge Plan
Departure
Patient Disposition: Home (Routine Discharge)
Date of Disposition: 02/27/24
Time of Disposition: 11:26
Patient with high blood pressure during this ER visit?: No
Condition: Good
Covid-19: Not Applicable
Discharge Problem:
Chest pain
Instructions: Chest Pain NON-DHP [employer] Follow Up
Prescriptions:
No Action
atorvastatin 40 mg Tablet
40 mg PO QPM
acetaminophen 325 mg Tablet
650 mg PO Q6HPRN MDD 3000 mg PRN (Reason: mild pain/temp>100.4)
isosorbide mononitrate 30 mg Tablet Extended Release 24 Hr
30 mg PO DAILY
glipizide 5 mg Tablet Extended Release 24hr
10 mg PO DAILY
clopidogrel 75 mg Tablet
75 mg PO DAILY
aspirin 81 mg Tablet,Delayed Release (Dr/Ec)
81 mg PO DAILY
nitroglycerin [Nitrostat] 0.4 mg Tablet, Sublingual
0.4 mg SUBLINGUAL [id number] PRN (Reason: chest pain)
metoprolol succinate 25 mg Tablet Extended Release 24 Hr
12.5 mg PO DAILY
metformin 500 mg Tablet Extended Release 24 Hr
1,000 mg PO BID
aripiprazole [Abilify] 20 mg Tablet
20 mg PO DAILY
Januvia 100 mg Tablet
100 mg PO DAILY
aripiprazole lauroxil 441 mg/1.6 mL Suspension,Extended Rel Syring
441 mg IM QMONTH
famotidine [Pepcid] 20 mg Tablet
20 mg PO Q6HPRN PRN (Reason: gerd)
paroxetine HCl 10 mg Tablet
10 mg PO DAILY
polyethylene glycol 3350 [GlycoLax] 17 gram Powder In Packet
17 g PO DAILYPRN PRN (Reason: constipation)
magnesium hydroxide [Milk of Magnesia] 400 mg/5 mL Suspension
400 mg PO [id number] PRN (Reason: no bm 3 days)
bisacodyl 10 mg Suppository
10 mg LA DAILY PRN (Reason: constipation, mom ineffective)
Fleet Enema 19-7 gram/118 mL Enema
118 ml LA DAILYPRN PRN (Reason: constipation, suppository ineffective)
ergocalciferol (vitamin D2) 1,250 mcg (50,000 unit) Capsule
1,250 mcg PO FR
Referrals:
Lucio Daniels, DO [Family Provider] -
Activity Restrictions/Additional Instructions:
You came to the emergency department today with concerns of chest pain. Here had a reassuring assessment. Please follow closely with cardiology for reassessment. Return to the emergency department for any worsening, new or concerning symptoms.
Interventions
Interventions:
*Risk Screen - Suicide Last Done: 02/27/24 07:25
*General Assessment Last Done: 02/27/24 07:25
*Neglect/Abuse Screening Last Done: 02/27/24 07:25
ED- Fall Risk Assessment Last Done: 02/27/24 07:25
ED- Cardiac Assessment Last Done: 02/27/24 07:25
Discharge Date and Time
Print Language: VIETNAMESE
[2024-02-27 07:32] VITALS: BP 105/64
[2024-02-27 07:32] LABS: Glucose - Point of Care 125 mg/dl (70-99)
[2024-02-27 07:41] LABS: % Basophils 0.7 % (0-2); % Eosinophils 3.7 % (0-6); % Immature Granulocytes 0.5 % (0-0.5); % Lymphocytes 32.5 % (20.5-51.1); % Monocytes 8.5 % (1.7-9.3); % Neutrophils 54.1 % (42.2-75.2); Absolute Basophils 0.1 10^3/uL (0-0.2); Absolute Eosinophils 0.3 10^3/uL (0-0.7); Absolute Lymphocytes 2.5 10^3/uL (1.2-3.4); Absolute Monocytes 0.7 10^3/uL (0.1-0.6); Absolute Neutrophils 4.1 10^3/uL (1.4-6.5); Hematocrit 37.7 % (39.0-52.0); Hemoglobin 13.8 g/dL (13.0-18.0); Mean Corp Hgb Conc. 36.6 g/dL (33.0-37.0); Mean Platelet Volume 10.1 fL (7.4-10.4); Nucleated Red Blood Cells % 0 % (-); Platelet Count 233 10^3/uL (130-400); Red Cell Dist. Width 12.2 % (11.5-14.5); White Blood Cell Count 7.6 10^3/uL (4.8-10.8)
[2024-02-27 07:56] LABS: ALT (SGPT) 17 U/L (0-50); AST (SGOT) 17 U/L (17-59); Albumin 4.2 g/dl (3.5-5.0); Alkaline Phosphatase 90 U/L (38-126); Blood Urea Nitrogen 17 mg/dl (9-20); Carbon Dioxide 22 mmol/L (22-30); Chloride 111 mmol/L (98-107); Estimated Creatinine Clearance 68 ml/min; Glucose 120 mg/dl (70-99); Potassium 3.9 mmol/L (3.5-5.1); Sodium 141 mmol/L (135-145); Total Bilirubin 0.5 mg/dl (0.2-1.3); Total Protein 6.7 g/dl (6.3-8.2); eGFR > 60.00
[2024-02-27 08:05] LABS: NT-proBNP 93.4 pg/ml; Troponin I < 0.012 ng/ml
[2024-02-27 10:42] VITALS: BP 116/69
[2024-02-27 11:15] LABS: Troponin I < 0.012 ng/ml
== END | disposition home or self-care (01) ==
LOC: EMR 07:24
PROVIDERS: Physician Assistant; EMERGENCY PHYSICIAN Emergency Medicine; FAMILY PHYSICIAN Internal Medicine
DX: R07.89 Other chest pain (principal); I25.10 Atherosclerotic heart disease of native coronary artery without angina pectoris; I10 Essential (primary) hypertension; E78.00 Pure hypercholesterolemia, unspecified; E11.9 Type 2 diabetes mellitus without complications; F03.93 Unspecified dementia, unspecified severity, with mood disturbance; F32.A Depression, unspecified; Z85.46 Personal history of malignant neoplasm of prostate; Z87.891 Personal history of nicotine dependence; Z95.5 Presence of coronary angioplasty implant and graft
CPT/HCPCS: 99283; 71046; 80053; 82962; 83735; 83880; 84484; 85025; 93005

== ENCOUNTER 2024-03-01 23:46 | Emergency (ER) | payer OTHER, MEDICARE, SELFPAY ==
[2024-03-01 23:57] VITALS: BMI 22.6
[2024-03-02 00:02] VITALS: BP 101/69
[2024-03-02 00:05] LABS: % Basophils 0.6 % (0-2); % Eosinophils 3.5 % (0-6); % Immature Granulocytes 0.4 % (0-0.5); % Lymphocytes 23.7 % (20.5-51.1); % Monocytes 7.4 % (1.7-9.3); % Neutrophils 64.4 % (42.2-75.2); Absolute Eosinophils 0.3 10^3/uL (0-0.7); Absolute Lymphocytes 1.7 10^3/uL (1.2-3.4); Absolute Monocytes 0.5 10^3/uL (0.1-0.6); Absolute Neutrophils 4.6 10^3/uL (1.4-6.5); Hematocrit 39.8 % (39.0-52.0); Hemoglobin 14.5 g/dL (13.0-18.0); Mean Corp Hgb Conc. 36.4 g/dL (33.0-37.0); Mean Corpuscular Hgb 30.1 pg (27.0-31.0); Mean Corpuscular Volume 82.6 fL (80.0-94.0); Mean Platelet Volume 9.9 fL (7.4-10.4); Nucleated Red Blood Cells % 0 % (-); Platelet Count 223 10^3/uL (130-400); Red Blood Cell Count 4.82 10^6/uL (4.70-6.10); Red Cell Dist. Width 12.4 % (11.5-14.5); White Blood Cell Count 7.1 10^3/uL (4.8-10.8)
[2024-03-02 00:18] LABS: ALT (SGPT) 16 U/L (0-50); AST (SGOT) 20 U/L (17-59); Albumin 4.4 g/dl (3.5-5.0); Alkaline Phosphatase 88 U/L (38-126); Blood Urea Nitrogen 21 mg/dl (9-20); Calcium 9.8 mg/dl (8.4-10.2); Carbon Dioxide 24 mmol/L (22-30); Chloride 109 mmol/L (98-107); Estimated Creatinine Clearance 67 ml/min; Glucose 192 mg/dl (70-99); Sodium 140 mmol/L (135-145); Total Bilirubin 0.5 mg/dl (0.2-1.3); Total Protein 7.2 g/dl (6.3-8.2); eGFR > 60.00
--- NOTE | 2024-03-02 00:19 | EDRN ---
Pt says he tried to throw himself in front of a train 6 or more months ago to kill himself. Pt has active SI, says he usually takes sleeping pills to try and kill himself however currently he wants to get a gun and kill himself. Pt with flat
affect, answers questions appropriately, interactive with staff. No HI/AH/VH.
[2024-03-02 00:29] LABS: Troponin I < 0.012 ng/ml
[2024-03-02 01:00] VITALS: BP 118/66
[2024-03-02 02:04] VITALS: BP 105/71
--- NOTE | 2024-03-02 02:08 | EDRN ---
per charge nurse Veronika Mirza RN, Dr Zepeda cleared pt of suicide precautions and pt no longer requires 1:1 observation
--- NOTE | 2024-03-02 02:24 | ED.GENMED ---
History of Present Illness
General
Chief Complaint: Chest Pain
Source: patient
Exam Limitations: none
Time Seen by Provider: 03/02/24 00:11
History of Present Illness
History of Present Illness:
73-year-old male with history of coronary disease, diabetes, hypertension, hyperlipidemia presents with chest pain. He states it was sharp and point specific to the left chest just lateral to the sternum at about the fifth intercostal space.
Patient denies shortness of breath. He was given nitroglycerin at [facility]. He does state he feels better here in the emergency department. No palpitations. No leg swelling. He does admit that he suffers chronically from suicidal ideation.
He states that has been ongoing for many years and has not changed. The patient was notably here on February 26 for the same thing. Patient is asking for food
Past History
Past History
ED Past Medical History: CAD, Cancer (Prostate cancer), HTN, IDDM, Psychiatric and Other (Dementia)
ED Past Surgical History: Urological (Prostate)
Social History
Tobacco: Former smoker
Alcohol: None
Drug: None
Living: halfway
Employment: Retired
Family History
Family History: Other (Noncontributory)
Phy Exam
Physical Exam
Physical Exam:
CONSTITUTIONAL Patient alert and oriented to person, place and time. Well-appearing. Vital signs reviewed.
HEAD atraumatic, normocephalic.
EYES eyelids normal to inspection, Pupils equally round and reactive to light, Extraocular muscles intact, Conjunctiva normal, Sclera normal.
NECK normal range of motion, Trachea midline, no jugular venous distention.
RESPIRATORY CHEST No respiratory distress noted, Chest expansion equal, Bilateral breath sounds clear.
CARDIOVASCULAR regular rate and rhythm, Heart sounds normal.
ABDOMEN abdomen nontender, Bowel sounds normal. No distention.
BACK normal inspection, no obvious deformities
UPPER EXTREMITY range of motion normal, Motor strength normal, no cyanosis, no edema.
LOWER EXTREMITY range of motion normal, Motor strength normal, no cyanosis, no edema.
NEURO Speech normal, No focal motor deficits, Liberty coma scale 15, Memory normal, Cranial Nerves intact to screening exam.
SKIN skin warm, dry, and normal in color.
Scores
Heart Score for Chest Pain Patients
STEMI patient?: No
History: Slightly or Non-Suspicious
ECG: Normal
Age: >/= 65 years
Risk Factors: >/= 3 Risk Factors or History of CAD
Troponin: </= Normal Limit
Heart Score for Chest Pain Patients: 4
Heart Score Risk: 20.3% MACE over next 6 weeks
Course
Orders/Labs/Results
Orders:
Orders
03/01/24 23:48
Electrocardiogram (*1) Urgent
Reason for Study: Chest Pain
Cardiac Monitoring- Treatment ONCE
EKG- Treatment ONCE
IV Insert/Care/Rem.- Treatment PRN
O2 Therapy [RESP] Urgent
Titrate/Wean O2 to maintain O2 sat greater than (%): 90
Special Instructions: Maintain sats >/=90%
Pulse Ox/spot Check [RESP] Urgent
Quantity: 1
Special Instructions: ON ROOM AIR
03/01/24 23:56
1:1 Observation - Suicide/ Violent Behavior As Directed
03/01/24 23:59
Complete Blood Count/With Diff Urgent
Comprehensive Metabolic Panel Urgent
Troponin I Urgent
03/02/24 00:07
Crisis Consult Urgent
Reason for Consult: pt with active SI and plan
03/02/24 00:22
CR Chest - 2 Views Urgent
Comment:
Reason For Exam: L cp
03/02/24 03:03
Troponin I Urgent
Abnormal Lab Results
03/01/24
23:59
Chloride 109 H mmol/L
(98-107)
BUN 21 H mg/dl
(9-20)
Glucose 192 H mg/dl
(70-99)
03/01/24 23:59
03/01/24 23:59
Vital Signs
Initial and Last Documented VS:
Initial Vital Signs
Temp Pulse Resp BP Pulse Ox
98.7 F 56 14 101/69 100
03/02/24 00:02 03/02/24 00:02 03/02/24 00:02 03/02/24 00:02 03/02/24 00:02
Last Documented Vital Signs
Temp Pulse Resp BP Pulse Ox
98.7 F 81 15 108/78 99
03/02/24 00:02 03/02/24 04:00 03/02/24 03:00 03/02/24 04:00 03/02/24 01:00
MDM/Problems Addressed
MDM/Problems Addressed:
Atypical chest pain
*Pulse Oximetry
Patient hypoxic: no
*EKG
Interpreted by ED Provider?: Yes
Interpretation: abnormal
Rate: normal
Rhythm: sinus
Blaine: left axis deviation
QRS Pattern: right bundle branch block
Ischemia: non-specific ST changes
*[employer] Verification Engineer Interpretation
Rate: normal
Interpretation: normal
Rhythm: sinus
*Critical Care Note
Total Time (30-74mins, 75-104mins- exclusive of procedures): Not Applicable
Data Reviewed
Review of Other/Old Records Reveals: Records (Previous records reviewed from outside hospital revealing history of ACS, scanned into the chart)
Source: patient
Prescriptions/Medications Considered But Not Given:
Consider further nitroglycerin but pain essentially resolved and low suspicion for ACS
Patient Management
Escalation/DeEscalation of care consider admission/obs:
Nonischemic EKG. Initial troponin negative. Await repeat troponin. If negative will refer to outpatient cardiology follow-up hotline
ED Attending Note
-
Portions of this chart may have been created with voice recognition software.� Occasional wrong word or��sound alike� substitutions may have occurred due to the inherent limitations of voice recognition software.
Discharge Plan
Departure
Discharge Problem:
Atypical chest pain
Instructions: Chest Pain DCA Follow Up
Prescriptions:
No Action
atorvastatin 40 mg Tablet
40 mg PO QPM
acetaminophen 325 mg Tablet
650 mg PO Q6HPRN MDD 3000 mg PRN (Reason: mild pain/temp>100.4)
isosorbide mononitrate 30 mg Tablet Extended Release 24 Hr
30 mg PO DAILY
glipizide 5 mg Tablet Extended Release 24hr
10 mg PO DAILY
clopidogrel 75 mg Tablet
75 mg PO DAILY
aspirin 81 mg Tablet,Delayed Release (Dr/Ec)
81 mg PO DAILY
nitroglycerin [Nitrostat] 0.4 mg Tablet, Sublingual
0.4 mg SUBLINGUAL [id number] PRN (Reason: chest pain)
metoprolol succinate 25 mg Tablet Extended Release 24 Hr
12.5 mg PO DAILY
metformin 500 mg Tablet Extended Release 24 Hr
1,000 mg PO BID
aripiprazole [Abilify] 20 mg Tablet
20 mg PO DAILY
Januvia 100 mg Tablet
100 mg PO DAILY
aripiprazole lauroxil 441 mg/1.6 mL Suspension,Extended Rel Syring
441 mg IM QMONTH
famotidine [Pepcid] 20 mg Tablet
20 mg PO Q6HPRN PRN (Reason: gerd)
paroxetine HCl 10 mg Tablet
10 mg PO DAILY
polyethylene glycol 3350 [GlycoLax] 17 gram Powder In Packet
17 g PO DAILYPRN PRN (Reason: constipation)
magnesium hydroxide [Milk of Magnesia] 400 mg/5 mL Suspension
30 ml PO [id number] PRN (Reason: no bm 3 days)
bisacodyl 10 mg Suppository
10 mg IN DAILY PRN (Reason: constipation, mom ineffective)
Fleet Enema 19-7 gram/118 mL Enema
118 ml IN DAILYPRN PRN (Reason: constipation, suppository ineffective)
ergocalciferol (vitamin D2) 1,250 mcg (50,000 unit) Capsule
1,250 mcg PO FR
omeprazole 20 mg Tablet,Delayed Release (Dr/Ec)
20 mg PO DAILY
Referrals:
Lucio Daniels, DO [Family Provider] -
Activity Restrictions/Additional Instructions:
Please avoid strenuous or exertional activity until cleared by cardiology. Please see cardiology in the next 48 hours for reevaluation. Return immediately for worsening pain, shortness breath, palpitations, sweating, nausea, weakness of any kind,
numbness, tingling or any other concerns.
Cardiology has been notified and a follow up appointment has been requested. Someone will call you on the next business day to schedule a follow up appointment.
Interventions
Interventions:
*Risk Screen - Suicide Last Done: 03/01/24 23:49
*General Assessment Last Done: 03/01/24 23:49
*Neglect/Abuse Screening Last Done: 03/01/24 23:49
*ED COVID-19 Vaccine History Last Done: 03/01/24 23:56
ED- Cardiac Assessment Last Done: 03/02/24 00:05
Discharge Date and Time
Print Language: KOREAN
[2024-03-02 03:00] VITALS: BP 130/72
[2024-03-02 03:36] LABS: Troponin I < 0.012 ng/ml
[2024-03-02 04:00] VITALS: BP 108/78
[2024-03-02 05:00] VITALS: BP 96/64
--- NOTE | 2024-03-02 05:22 | EDRN ---
Report called to Nirmala at [facility]
== END 2024-03-02 05:24 | disposition home or self-care (01) ==
LOC: EMR 23:46
PROVIDERS: EMERGENCY PHYSICIAN Emergency Medicine; FAMILY PHYSICIAN Internal Medicine
DX: R07.89 Other chest pain (principal); I10 Essential (primary) hypertension; I25.10 Atherosclerotic heart disease of native coronary artery without angina pectoris; E11.9 Type 2 diabetes mellitus without complications; E78.5 Hyperlipidemia, unspecified; Z87.891 Personal history of nicotine dependence
CPT/HCPCS: 99285; 71046; 80053; 84484; 85025; 93005

== ENCOUNTER 2024-03-07 20:46 | Emergency (ER) | payer OTHER, MEDICARE, SELFPAY ==
[2024-03-07 20:50] VITALS: BP 114/62
[2024-03-07 20:51] VITALS: BMI 26.6
[2024-03-07 20:59] VITALS: BP 114/62
[2024-03-07 21:00] VITALS: BP 100/76
[2024-03-07 21:17] LABS: % Basophils 0.3 % (0-2); % Eosinophils 3.4 % (0-6); % Immature Granulocytes 0.5 % (0-0.5); % Lymphocytes 18.5 % (20.5-51.1); % Monocytes 9.1 % (1.7-9.3); % Neutrophils 68.2 % (42.2-75.2); Absolute Eosinophils 0.3 10^3/uL (0-0.7); Absolute Lymphocytes 1.4 10^3/uL (1.2-3.4); Absolute Monocytes 0.7 10^3/uL (0.1-0.6); Absolute Neutrophils 5.2 10^3/uL (1.4-6.5); Hematocrit 35.2 % (39.0-52.0); Hemoglobin 13.1 g/dL (13.0-18.0); Mean Corp Hgb Conc. 37.2 g/dL (33.0-37.0); Mean Corpuscular Hgb 31.2 pg (27.0-31.0); Mean Corpuscular Volume 83.8 fL (80.0-94.0); Mean Platelet Volume 10.6 fL (7.4-10.4); Nucleated Red Blood Cells % 0 % (-); Platelet Count 199 10^3/uL (130-400); Red Cell Dist. Width 12.2 % (11.5-14.5); White Blood Cell Count 7.6 10^3/uL (4.8-10.8)
[2024-03-07 21:33] LABS: Troponin I < 0.012 ng/ml
[2024-03-07 21:35] LABS: ALT (SGPT) 17 U/L (0-50); AST (SGOT) 19 U/L (17-59); Alkaline Phosphatase 80 U/L (38-126); Blood Urea Nitrogen 19 mg/dl (9-20); Calcium 9.8 mg/dl (8.4-10.2); Carbon Dioxide 20 mmol/L (22-30); Estimated Creatinine Clearance 59 ml/min; Glucose 187 mg/dl (70-99); Lipase 47 U/L (23-300); Total Bilirubin 0.5 mg/dl (0.2-1.3); Total Protein 6.5 g/dl (6.3-8.2); eGFR > 60.00
[2024-03-07 21:39] LABS: Chloride 109 mmol/L (98-107); Potassium 4.2 mmol/L (3.5-5.1); Sodium 138 mmol/L (135-145)
--- NOTE | 2024-03-07 23:37 | ED.GENMED ---
History of Present Illness
General
Chief Complaint: Chest Pain
Source: patient and records
Exam Limitations: none
Time Seen by Provider: 03/07/24 20:56
Nursing documentation reviewed up to this point in time: agreed with
History of Present Illness
History of Present Illness:
73-year-old male history of CAD status post stenting in [facility] 6 months or so ago apparently was found incompetent, to live alone, referred to live in a local fpc had episode of chest pain this evening somewhat reminiscent of his
prior angina, got a nitro feeling better also feels depressed like he may want to kill himself which is not a new issue for him states he does not feel psychotic because he has been taking his antipsychotic meds, he states his plan will be to get a
gun, but he does not have access to a gun
Past History
Past History
ED Past Medical History: CAD, Cancer (Prostate cancer), HTN, IDDM, Psychiatric and Other (Dementia)
ED Past Surgical History: Urological (Prostate)
Social History
Tobacco: Former smoker
Alcohol: None
Drug: None
Personal: Single
Living: fpc
Employment: Retired
Family History
Family History: Other (Noncontributory)
Review of Systems
Review of Systems
All Other Systems: Not applicable
Constitutional: Denies fever or fatigue
EENT: Reports no symptoms
Respiratory: Reports no symptoms
Cardiac: Reports chest pain
ABD/GI: Reports no symptoms
: Reports no symptoms
Endocrine: Reports no symptoms
Hematologic/Lymphatic: Reports no symptoms
Phy Exam
Physical Exam
Physical Exam:
Physical Exam
General: no apparent distress, not acutely ill
Neck: No jaundice
Heart: Regular
Lungs: no acute respiratory distress. No wheezing
Neuro: alert and oriented. no focal neurological deficits
Skin: no rash
Psychiatric: well kept. interactive and cooperative
Extremities: no edema.
Scores
Heart Score for Chest Pain Patients
STEMI patient?: No
History: Slightly or Non-Suspicious
ECG: Nonspecific Repolarization
Age: >/= 65 years
Risk Factors: >/= 3 Risk Factors or History of CAD
Troponin: </= Normal Limit
Heart Score for Chest Pain Patients: 5
Heart Score Risk: 20.3% MACE over next 6 weeks
Course
Orders/Labs/Results
Orders:
Orders
03/07/24 20:49
Electrocardiogram (*1) Urgent
Reason for Study: Chest Pain
EKG- Treatment ONCE
03/07/24 21:02
Complete Blood Count/With Diff Urgent
Comprehensive Metabolic Panel Urgent
Lipase Urgent
Troponin I Urgent
03/07/24 21:19
Crisis Consult Urgent
Reason for Consult: suicidal
03/07/24 23:13
Troponin I Urgent
Abnormal Lab Results
03/07/24
21:02
RBC 4.20 L 10^6/uL
(4.70-6.10)
Hct 35.2 L %
(39.0-52.0)
MCH 31.2 H pg
(27.0-31.0)
MCHC 37.2 H g/dL
(33.0-37.0)
MPV 10.6 H fL
(7.4-10.4)
Absolute Monos (auto) 0.7 H 10^3/uL
(0.1-0.6)
Lymphocytes % 18.5 L %
(20.5-51.1)
Chloride 109 H mmol/L
(98-107)
Carbon Dioxide 20 L mmol/L
(22-30)
Glucose 187 H mg/dl
(70-99)
03/07/24 21:02
03/07/24 21:02
Vital Signs
Initial and Last Documented VS:
Initial Vital Signs
BP
114/62
03/07/24 20:50
Last Documented Vital Signs
Temp Pulse Resp BP Pulse Ox
98.3 F 77 24 100/76 99
03/07/24 20:59 03/07/24 22:02 03/07/24 22:02 03/07/24 21:00 03/07/24 22:02
MDM/Problems Addressed
Differential Diagnosis Includes:
Angina, atypical chest pain, depression, suicidal ideation, ID
MDM/Problems Addressed:
Chest pain depression suicidality
Chronic conditions affecting care: CAD and Psychiatric illness
Acute Exacerbation and/or Progression of Chronic Illness: CAD and Psychiatric illness
*Pulse Oximetry
Patient hypoxic: no
*EKG
Interpreted by ED Provider?: Yes
Interpretation: abnormal
Comparison EKG: no changes
Heart Rate: 78
Rate: normal
Rhythm: sinus
Ischemia: non-specific ST changes
*Motorcycle Police Interpretation
Rate: normal
Interpretation: normal
Heart Rate: 78
Rhythm: sinus
*Critical Care Note
Total Time (30-74mins, 75-104mins- exclusive of procedures): Not Applicable
Data Reviewed
Review of Other/Old Records Reveals: Labs and Records
Source: patient and records
Prescriptions/Medications Considered But Not Given:
Aspirin nitrates heparin
Update Note
Update Note:
Update, his issues appear chronic, prior records briefly reviewed multiple evaluations with crisis, I did have crisis see him, they cleared him for discharge to his facility does not have any access to weapons he is not psychotic, versus chest pain,
his EKG is noted, first troponin is negative will repeat
Second troponin noted, patient is hungry
ED Attending Note
-
Portions of this chart may have been created with voice recognition software.� Occasional wrong word or��sound alike� substitutions may have occurred due to the inherent limitations of voice recognition software.
Discharge Plan
Departure
Patient Disposition: Group Home/SNF
Date of Disposition: 03/08/24
Time of Disposition: 00:07
Patient with high blood pressure during this ER visit?: No
Condition: Good
Discharge Problem:
Chest pain, Depression
Instructions: Chest Pain DCA Follow Up
Prescriptions:
No Action
atorvastatin 40 mg Tablet
40 mg PO QPM
acetaminophen 325 mg Tablet
650 mg PO Q6HPRN MDD 3000 mg PRN (Reason: mild pain/temp>100.4)
isosorbide mononitrate 30 mg Tablet Extended Release 24 Hr
30 mg PO DAILY
glipizide 5 mg Tablet Extended Release 24hr
10 mg PO DAILY
clopidogrel 75 mg Tablet
75 mg PO DAILY
aspirin 81 mg Tablet,Delayed Release (Dr/Ec)
81 mg PO DAILY
nitroglycerin [Nitrostat] 0.4 mg Tablet, Sublingual
0.4 mg SUBLINGUAL [id number] PRN (Reason: chest pain)
metoprolol succinate 25 mg Tablet Extended Release 24 Hr
12.5 mg PO DAILY
metformin 500 mg Tablet Extended Release 24 Hr
1,000 mg PO BID
aripiprazole [Abilify] 20 mg Tablet
20 mg PO DAILY
Januvia 100 mg Tablet
100 mg PO DAILY
aripiprazole lauroxil 441 mg/1.6 mL Suspension,Extended Rel Syring
441 mg IM QMONTH
famotidine [Pepcid] 20 mg Tablet
20 mg PO Q6HPRN PRN (Reason: gerd)
paroxetine HCl 10 mg Tablet
10 mg PO DAILY
polyethylene glycol 3350 [GlycoLax] 17 gram Powder In Packet
17 g PO DAILYPRN PRN (Reason: constipation)
magnesium hydroxide [Milk of Magnesia] 400 mg/5 mL Suspension
30 ml PO [id number] PRN (Reason: no bm 3 days)
bisacodyl 10 mg Suppository
10 mg OK DAILY PRN (Reason: constipation, mom ineffective)
Fleet Enema 19-7 gram/118 mL Enema
118 ml OK DAILYPRN PRN (Reason: constipation, suppository ineffective)
ergocalciferol (vitamin D2) 1,250 mcg (50,000 unit) Capsule
1,250 mcg PO FR
omeprazole 20 mg Tablet,Delayed Release (Dr/Ec)
20 mg PO DAILY
Referrals:
UNKNOWN - PT DOES,NOT KNOW [Family Provider] -
Interventions
Interventions:
*Risk Screen - Suicide Last Done: 03/07/24 20:54
*General Assessment Last Done: 03/07/24 20:53
*Neglect/Abuse Screening Last Done: 03/07/24 20:50
*ED COVID-19 Vaccine History Last Done: 03/07/24 20:53
ED- Cardiac Assessment Last Done: 03/07/24 21:00
Discharge Date and Time
Print Language: [place]
[2024-03-07 23:42] LABS: Troponin I < 0.012 ng/ml
== END 2024-03-08 01:20 ==
LOC: EMR 20:46
PROVIDERS: EMERGENCY PHYSICIAN Emergency Medicine
DX: R07.89 Other chest pain (principal); F32.A Depression, unspecified; I25.10 Atherosclerotic heart disease of native coronary artery without angina pectoris; I10 Essential (primary) hypertension; E11.9 Type 2 diabetes mellitus without complications; F03.93 Unspecified dementia, unspecified severity, with mood disturbance; Z85.46 Personal history of malignant neoplasm of prostate; Z87.891 Personal history of nicotine dependence; Z95.5 Presence of coronary angioplasty implant and graft
CPT/HCPCS: 99283; 80053; 83690; 84484; 85025; 93005